=== PATIENT | female | born 1950 | race African-American/Black ===

== ENCOUNTER 2016-04-15 08:04 | Inpatient (IN) ==
[2016-04-15] MEDS ORDERED: NS 1,000 ML IV PRN (08:19)
[2016-04-15 08:57] LABS: MANUAL DIFF NEEDED? NO
[2016-04-15 09:21] LABS: URINE CULTURE NEEDED? NO; URINE MICRO REVIEW NEEDED? NO; URINE SOURCE CLEAN CATCH
[2016-04-15 09:22] LABS: INR 1.05; PROTIME 11.1 Seconds (9.2-11.7); PTT 23.7 Seconds (22.0-36.0)
[2016-04-15 09:24] LABS: BASO% 0.7 % (0.0-0.8); EOS% 2.5 % (0.0-10.0); HEMATOCRIT 32.5 % (37.0-47.0); HEMOGLOBIN 10.4 g/dL (12.0-16.0); LYMPH# 1.84 X1000 (1.2-3.4); LYMPH% 45.1 % (20.5-51.1); MCH 29.9 PG (27-31); MCV 93.4 FL (81-99); MONO# 0.47 X1000 (0.11-0.59); MONO% 11.5 % (1.7-9.3); MPV 12.5 FL (7.4-10.4); NEUT% 40.2 % (42.2-75.2); PLT 92 X1000 (130-400); RBC 3.48 XMIL (4.2-5.4)
[2016-04-15 09:25] LABS: ALBUMIN 4.2 g/dL (3.5-5.0); CALCIUM 9.7 mg/dL (8.8-10.2); POTASSIUM 3.5 mmol/L (3.5-5.1); TOTAL BILIRUBIN 0.37 mg/dL (0.20-1.00)
[2016-04-15 09:31] LABS: BILIRUBIN URINE NEGATIVE (NEGATIVE); BLOOD URINE NEGATIVE (NEGATIVE); COLOR YELLOW; GLUCOSE URINE NEGATIVE (NEGATIVE); LEUKOCYTES URINE NEGATIVE (NEGATIVE); NITRITE URINE NEGATIVE (NEGATIVE); PH URINE 5.5; PROTEIN URINE TRACE mg/dL (NEGATIVE); SP GRAVITY URINE 1.021; TURBIDITY URINE CLEAR (CLEAR); UROBILINOGEN URINE NORMAL (NORMAL)
[2016-04-15 09:32] LABS: UR EPITHELIAL CELLS <10 /HPF (<10); URINE BACTERIA NEGATIVE /HPF; URINE RBC <10 /HPF (<10); URINE WBC <10 /HPF (<10)
[2016-04-15 09:35] LABS: UR AMPHETAMINES QUAL NONE DETECTED (NONE DETECT); UR BARBITUATES QUAL NONE DETECTED (NONE DETECT); UR BENZODIAZEPIN QUAL NONE DETECTED (NONE DETECT); UR CANNABINOIDS QUAL NONE DETECTED (NONE DETECT); UR COCAINE QUAL NONE DETECTED (NONE DETECT); UR METHADONE QUAL NONE DETECTED (NONE DETECT); UR OPIATES QUAL NONE DETECTED (NONE DETECT); UR OXYCODONE QUAL NONE DETECTED (NONE DETECT); UR PCP QUAL NONE DETECTED (NONE DETECT)
--- NOTE | 2016-04-15 09:39 | PROVIDER DOCUMENTATION ---
HPI-Neurological Disorder - General Chief Complaint: Syncope Stated Complaint: TIA SX Time Seen by Provider: 04/15/16 08:05 Source: family, EMS Allergies/Adverse Reactions: Patient Allergies Allergy/AdvReac Type Severity Reaction Status Date / Time No Known Allergies Allergy Verified 02/02/13 17:23 Home Medications: Home Medication List Medication Instructions Recorded Confirmed Last Taken Type Aspirin 81 mg PO DAILY 02/02/13 04/15/16 04/14/16 08:00 History Carvedilol 3.125 mg PO BID 02/02/13 04/15/16 04/14/16 20:00 History Cetirizine [Zyrtec] 10 mg PO DAILY 02/02/13 04/15/16 04/14/16 08:00 History Cholecalciferol (Vit D3) [Vitamin 1,000 unit PO DAILY 02/02/13 04/15/16 08:00 History D3] Clonidine [Catapres] 0.1 mg PO BID 02/02/13 04/15/16 04/14/16 08:00 History Ferrous Gluconate [Fergon] 1 each PO DAILY 02/02/13 04/15/16 04/14/16 08:00 History Levothyroxine [Synthroid] 25 microgm PO DAILY 02/02/13 04/15/16 04/14/16 08:00 History Losartan/Hydrochlorothiazide 1 each PO DAILY 02/02/13 04/15/16 04/14/16 08:00 History [Losartan-Hctz 50-12.5 mg Tab] Metformin [Glucophage] 500 mg PO BID CC 02/02/13 04/15/16 04/14/16 20:00 History Omeprazole [Prilosec] 20 mg PO DAILY@0700 02/02/13 04/15/16 04/14/16 08:00 History SIMVAstatin [Zocor] 20 mg PO DAILY 02/02/13 04/15/16 04/14/16 08:00 History - History of Present Illness-Neuro Nature of Presenting Problem: pt states woke up this morning and did not realized she had messed herself she states she smokes too much this morning went out to get a newspaper and passed out fell into the bushes this was witness by her daughter when the daughter came outside to check on her she had slurring of speech. when the fire department arrived continues slurringof speech when she was put on the stretcher and transported the slurringhad improved by the time she arrived. pt denies any pain at this time admits to having cva in the past with mild left sided residual weakness Onset/Duration: reports: just prior to arrival Timing: reports: improving, gone now Context: reports: impaired speech, facial droop Any recent trauma/injury?: reports: none Character of Deficits: reports: impaired speech, falling (syncope) Cognitive Baseline: alert, oriented x3 Gait Baseline: walks without assistance Associated Symptoms: reports: denies symptoms Review of Systems - Adult - REVIEW OF SYSTEMS - ADULT Constitutional: reports: see HPI Eyes: reports: no symptoms reported Ears, Nose, Mouth & Throat: reports: no symptoms reported Cardiovascular: reports: no symptoms reported Respiratory: reports: no symptoms reported Gastrointestinal: reports: no symptoms reported Genitourinary: reports: no symptoms reported Musculoskeletal: reports: no symptoms reported Integumentary: reports: no symptoms reported Neurological: reports: see HPI Psychiatric: reports: no symptoms reported Endocrine: reports: no symptoms reported Hematologic/Lymphatic: reports: no symptoms reported Allergic/Immunologic: reports: no symptoms reported All Other Systems: Reviewed and Negative Past History - Adult - PAST MEDICAL HISTORY-ADULT Review of Records: reports: Old Records Reviewed, Nursing Assessment Review, Medications Reviewed Major Childhood Illnesses: reports: denies history Cardiovascular: reports: HTN, hyperlipidemia Neurological: reports: CVA, stroke deficits (slight right sided hemiparesis), speech difficulty, TIA - IMMUNIZATION STATUS Childhood Immunizations: See Nurse Assessment Flu Vaccine: See Nurse Assessment - SOCIAL HISTORY Smoking: cigarettes Provider spent 3-5 mins advising pt. on dangers of tobacco.: Discussed manners to quit use, and f/u contacts for add'l counseling. Substance Use: none/never Alcohol Use Frequency: never Living Situation: family Physical Exam- Neurological - Physical Exam-Neuro Initial Vital Signs Reviewed: Yes General Appearance: appears well, alert, no apparent distress Eye Exam: bilateral eye: normal inspection, PERRL, EOMI HENMT: normocephalic/atraumatic, moist mucous membranes, other (mild drooping of the lip on the left pt states this is old) Head Injury: no evidence of injury Neck: non-tender, full range of motion, supple Respiratory: chest non-tender, lungs clear, normal breath sounds, no pleuratic chest pain, no respiratory distress, no accessory muscle use Cardiovascular: normal peripheral pulses, regular rate, rhythm Abdominal Exam: normal bowel sounds, non tender, soft Extremity: normal range of motion, non-tender, normal inspection structural steel fitter Exam: normal hearing, normal speech, PERRL Coordination/Gait: normal finger to nose Motor/Sensory: no motor deficit, no sensory deficit, no pronator drift Neurologic: grossly normal, facial droop (left chronic) Integumentary: normal color, normal turgor, warm/dry Progress - PLAN OF CARE/RESULTS Progress/Plan/Lab Results: Laboratory Results - last 24 hr 04/15/16 04/15/16 04/15/16 08:09 08:09 08:09 WBC 4.08 L RBC 3.48 L Hgb 10.4 L Hct 32.5 L MCV 93.4 MCH 29.9 MCHC 32.0 L RDW Std Deviation 13.3 Plt Count 92 L MPV 12.5 H Immature Gran % (Auto) 0.0 Neut % (Auto) 40.2 L Lymph % (Auto) 45.1 [place] % (Auto) 11.5 H Eos % (Auto) 2.5 Baso % (Auto) 0.7 Immature Gran # (Auto) 0.00 Neut # (Auto) 1.64 Lymph # (Auto) 1.84 [place] # (Auto) 0.47 Eos # (Auto) 0.10 Baso # (Auto) 0.03 PT 11.1 INR 1.05 PTT (Actin FS) 23.7 Sodium 140 Potassium 3.5 Chloride 102 Carbon Dioxide 23 L Anion Gap 15 BUN 27 H Creatinine 1.4 H Estimated GFR/1.73 m2 46 BUN/Creatinine Ratio 19 Glucose 125 H Calculated Osmolality 286 Calcium 9.7 Total Bilirubin 0.37 AST 13 ALT 7 L Alkaline Phosphatase 55 Troponin T Total Protein 7.0 Albumin 4.2 Globulin 2.8 Albumin/Globulin Ratio 1.5 Urine Source Urine Color Urine Turbidity Urine pH Ur Specific [place] Urine Protein Ur Glucose (Stick) Ur Ketones (Stick) Urine Blood Urine Nitrite Urine Bilirubin Urobilinogen Dipstick Urine Leukocytes Urine WBC (Auto) Urine RBC (Auto) U Epithel Cells (Auto) Urine Bacteria (Auto) Urine Opiates Screen Ur Oxycodone Screen Ur Methadone, Qual Ur Barbiturates Screen Ur Phencyclidine Scrn Ur Amphetamines Screen U Benzodiazepines Scrn Urine Cocaine Screen U Cannabinoids Screen 04/15/16 04/15/16 04/15/16 08:09 09:09 09:09 WBC RBC Hgb Hct MCV MCH MCHC RDW Std Deviation Plt Count MPV Immature Gran % (Auto) Neut % (Auto) Lymph % (Auto) [place] % (Auto) Eos % (Auto) Baso % (Auto) Immature Gran # (Auto) Neut # (Auto) Lymph # (Auto) [place] # (Auto) Eos # (Auto) Baso # (Auto) PT INR PTT (Actin FS) Sodium Potassium Chloride Carbon Dioxide Anion Gap BUN Creatinine Estimated GFR/1.73 m2 BUN/Creatinine Ratio Glucose Calculated Osmolality Calcium Total Bilirubin AST ALT Alkaline Phosphatase Troponin T < 0.010 Total Protein Albumin Globulin Albumin/Globulin Ratio Urine Source CLEAN CATCH Urine Color YELLOW Urine Turbidity CLEAR Urine pH 5.5 Ur Specific [place] 1.021 Urine Protein TRACE A Ur Glucose (Stick) NEGATIVE Ur Ketones (Stick) NEGATIVE Urine Blood NEGATIVE Urine Nitrite NEGATIVE Urine Bilirubin NEGATIVE Urobilinogen Dipstick NORMAL Urine Leukocytes NEGATIVE Urine WBC (Auto) <10 Urine RBC (Auto) <10 U Epithel Cells (Auto) <10 Urine Bacteria (Auto) NEGATIVE Urine Opiates Screen NONE DETECTED Ur Oxycodone Screen NONE DETECTED Ur Methadone, Qual NONE DETECTED Ur Barbiturates Screen NONE DETECTED Ur Phencyclidine Scrn NONE DETECTED Ur Amphetamines Screen NONE DETECTED U Benzodiazepines Scrn NONE DETECTED Urine Cocaine Screen NONE DETECTED U Cannabinoids Screen NONE DETECTED ct neg for acute findings will admit for tia cva - CONSULTS/PCP/HOSPITALIST Notification #1 *Consult/PCP/Hospitalist*: hospitalist page dr allison drug abuse resistance education officer typically comes to the bedside Departure - Departure Time of Disposition Order: 09:41 DIAGNOSIS: TIA (transient ischemic attack) Qualifiers: Transient cerebral ischemia type: unspecified Qualified Code(s): G45.9 - Transient cerebral ischemic attack, unspecified Disposition: ADMITTED INPATIENT 09 Certified Medical Emergency: Emergent Condition: Fair
--- NOTE | 2016-04-15 09:39 | ED EKG INTERP ---
EKG Interpretation - EKG Time of EKG reading by physician:: 08:14 EKG Read and Signed by:: Alfonso Acuna EKG Interpretation (*Must complete 3 of following elements*): Normal Rate: 66 Rhythm: normal sinus rhythm [place]: normal
--- NOTE | 2016-04-15 10:11 | Diag Imaging Result Document ---
PROCEDURE NAME: HEAD W/O CONTRAST - 04/15/2016 CT HEAD WITHOUT CONTRAST: COMPARISON: 08/27/2015. FINDINGS: There is a stable right frontal parafalcine meningioma measuring up to 2.4 cm. There is stable mild adjacent effacement of the right lateral ventricle. There is stable focal encephalomalacia primarily involving the left parietal lobe. There also appears to be mild left frontal lobe encephalomalacia. There is extensive white matter microangiopathy that is stable. There is no definite acute infarct given the limited sensitivity of CT versus MRI. There is no evidence of intracranial hemorrhage. Surrounding soft tissues and bony structures are essentially unremarkable. IMPRESSION: 1. Stable right frontal meningioma. 2. Extensive stable chronic changes as described but no evidence of acute intracranial pathology by CT.
[2016-04-15] MEDS ORDERED: ZOFRAN IV PRN (10:57)
[2016-04-15] MEDS ORDERED: TYLENOL PO PRN (10:57)
--- NOTE | 2016-04-15 10:58 | HISTORY AND PHYSICAL ---
HISTORY OF PRESENT ILLNESS: This is a 65-year-old. She stated this morning, she lives at home with her who is the bedridden. Usually, she does not go out and get the paper but today, she did. She was going to go take a shower. Her daughter was there. I think her 2 daughters were there. She went out to get the newspaper. They heard her crying out. She was on the ground. She had a bowel movement and apparently urinated on herself. They did not note any tonic- clonic seizure activity. She seemed to have some confusion. Her speech was labored and could not understand her words. Left arm and left leg weak. Had difficulty standing on her left leg. Brought her to the emergency room. When we saw her, her left leg was better. Still felt a little weak. Left hand was improved as well. Her speech had resolved, according to the family, and she was clear. She states she could swallow. She did complain of a dull headache, just nonspecific on top of her head. Denied fever or chills. PAST MEDICAL HISTORY: 1. Diabetes mellitus type 2. 2. Hypertension. 3. Hyperlipidemia. 4. Iron-deficiency anemia. 5. Meningioma. 6. Prior strokes. 7. Gastroesophageal reflux disease. 8. Hypothyroidism. ALLERGIES: No known drug allergies. FAMILY HISTORY: Noncontributory. SOCIAL HISTORY: She lives at home with her who is bedridden. Very attentive family. Denies alcohol or tobacco by previous report. REVIEW OF SYSTEMS: General: Not reporting any weight change. No fever or chills. HEENT: Headache. Trouble with speech. Neurologic: Left arm and left leg weakness and dysphagia which has resolved. Still some weakness in the left leg and left arm but it is mild. Has good stage director strength. GI/: No complaints. Endocrinologic/Hematologic: History of diabetes, otherwise unremarkable. PHYSICAL EXAMINATION: GENERAL: In the emergency room, well-developed, well nourished, thin, black female. VITAL SIGNS: Pulse was 60, respirations 18, blood pressure 146/84. Notice on the monitor, blood pressure was 180/90 when we saw her. Weight 160 pounds. HEENT: Pupils are equal and round. CVP less than 6 cm. No facial droop. NEUROLOGIC: Cranial nerves 2-12 appear intact. Left arm with good strength, stage director strength. Left foot a little weaker than the right, dorsiflexion and plantarflexion, but she is able to lift that leg off the table. ABDOMEN: Soft, nondistended. CARDIOVASCULAR: Regular rhythm and rate without murmur or S3. ABDOMEN: Soft. SKIN: Warm and dry. DIAGNOSTIC DATA: Monitor shows sinus rhythm. LABORATORY AND X-RAY DATA: Sodium 140, potassium 3.5, chloride 102, bicarb 23, BUN 27, creatinine 1.4, calcium 9.7. AST 13, ALT 7. PT was 11, PTT 23. Urinalysis was nondetected for opiates, oxycodone, methadone, barbiturates, phencyclidine, amphetamines, benzodiazepines, cocaine, and cannabinoids. Urine clear. LIST OF HER HOME MEDICATIONS: She is on aspirin 81 mg a day, Coreg 3.125 mg b.i.d., Zyrtec 10 mg a day, vitamin D3 1000 mg a day, Catapres 0.1 mg b.i.d., 1 daily, Synthroid 25 mcg a day, losartan/hydrochlorothiazide 50/12.5 one a day, metformin 500 mg b.i.d., Prilosec 20 mg a day, Zocor 20 mg daily. ASSESSMENT AND PLAN: 1. Transient ischemic event. Appears to be resolving. Suspect in the right middle carotid distribution. We will add Plavix to her regimen. Aspirin 81 mg a day and Plavix 75 mg a day. She appears to be able to swallow okay. I think we may have had studies before but we probably need to repeat an echocardiogram, although one was done in 2012. We will repeat an echocardiogram and make sure there is no mural thrombus. Put her on a monitor and make sure we are not going into atrial fibrillation, atypical rhythm. We will check carotid studies. She did have a carotid Doppler back in January [address] Zhao. At that time, imaging showed smooth heterogeneous plaque in the right carotid bulb but large plaque in the left carotid bulb, ulceration from the left bilateral antegrade vertebral flow. We will check those again. Probably check an MRI as well tomorrow. 2. Diabetes mellitus type 2. Check pattern sugars and see if we can keep her sugars between 100 and 180. 3. Hypertension. Will tolerate systolic pressures of 140-160. We will watch her afterload. 4. She has a history of iron deficiency anemia. Aware of that. 5. History of meningioma. 6. History of hypothyroidism. We will check T4 and TSH. 7. History of dyslipidemia. Of course, check her lipid profile in the morning. We want to try and keep her LDL, if we can, below 80 just to maximize treating her risk factors for atherosclerosis. Last echocardiogram done on 02/03/2013, excellent left ventricular function at that time, biatrial enlargement. No diastolic dysfunction. Mild degree of tricuspid regurgitation. Mild degree of mitral regurgitation. 8. I think we will put her on full liquids today, make sure she is swallowing okay, and then advance her diet as able. Begin physical and occupational therapy in the morning.
--- NOTE | 2016-04-15 11:10 | Diag Imaging Result Document ---
PROCEDURE NAME: CHEST-PORTABLE - 04/15/2016 AP AND LATERAL RADIOGRAPH OF THE CHEST: COMPARISON: None available. FINDINGS: The lungs are grossly clear. There is no discrete pleural fluid collection or pneumothorax. The cardiomediastinal silhouette and upper airway are grossly unremarkable. IMPRESSION: No evidence of acute chest pathology.
[2016-04-15] MEDS: NS 1,000 ML IV SCH ×2 (11:26→21:16)
[2016-04-15] MEDS: HUMULIN R SUBQ SCH ×3 (11:49→21:21)
[2016-04-15] MEDS: COREG PO SCH (21:20)
[2016-04-15] MEDS: CATAPRES PO SCH (21:20)
[2016-04-15] MEDS: ZOCOR PO SCH (21:21)
[2016-04-16] MEDS: HUMULIN R SUBQ SCH ×4 (06:53→21:12)
[2016-04-16] MEDS: PRILOSEC PO SCH (06:55)
[2016-04-16] MEDS: SYNTHROID PO SCH (06:56)
[2016-04-16] MEDS: NS 1,000 ML IV SCH ×2 (06:58→19:55)
--- NOTE | 2016-04-16 07:06 | EKG Report ---
Test Performed on : 04/15/2016 08:14:56 AM Test Reason : RE ORDER FOR EKG IN MUSE Blood Pressure : / mmHG Vent. Rate : 066 BPM Atrial Rate : 066 BPM P-R Int : 130 ms QRS Dur : 084 ms QT Int : 428 ms P-R-T Axes : 069 045 029 degrees QTc Int : 448 ms Normal sinus rhythm. with sinus arrhythmia. Normal ECG When compared with ECG of 27-AUG-2015 16:42, Nonspecific T wave abnormality now evident in Inferior leads Nonspecific T wave abnormality, worse in Anterior leads Unconfirmed Result
[2016-04-16 07:11] LABS: MANUAL DIFF NEEDED? NO
[2016-04-16 07:22] LABS: BASO% 0.5 % (0.0-0.8); EOS# 0.08 X1000 (0.0-0.7); HEMOGLOBIN 9.9 g/dL (12.0-16.0); LYMPH# 1.72 X1000 (1.2-3.4); MCH 29.6 PG (27-31); MCHC 31.9 g/dL (33-37); MCV 92.8 FL (81-99); MONO% 14.6 % (1.7-9.3); NEUT% 40.9 % (42.2-75.2); PLT 149 X1000 (130-400); RBC 3.34 XMIL (4.2-5.4)
[2016-04-16 07:28] LABS: INR 1.1; PROTIME 11.7 Seconds (9.2-11.7)
[2016-04-16 07:33] LABS: HEMOGLOBIN A1C 5.4 % (4.8-6.0)
[2016-04-16 07:39] LABS: IRON SATURATION 29 %; TIBC 167 ug/dL; TOTAL IRON 49 ug/dL (49-151); UNBOUND IRON 118 ug/dL (112-346)
[2016-04-16 07:59] LABS: FREE T4 1.25 ng/dL (0.93-1.70)
[2016-04-16] MEDS ORDERED: PLAVIX PO SCH (09:00)
[2016-04-16] MEDS: VITAMIN D PO SCH (09:20)
[2016-04-16] MEDS: CATAPRES PO SCH ×2 (09:21→21:12)
[2016-04-16] MEDS: COREG PO SCH ×2 (09:21→21:12)
[2016-04-16] MEDS: ASPIRIN PO SCH (09:21)
[2016-04-16] MEDS: FERGON PO SCH (09:21)
--- NOTE | 2016-04-16 11:15 | Diag Imaging Result Document ---
PROCEDURE NAME: MRI BRAIN W W/O CONTRAST - 04/16/2016 MRI OF THE BRAIN WITHOUT AND WITH CONTRAST: TECHNIQUE: Images are obtained prior to and following Omniscan administration. COMPARISON: CT head of 04/15/2016. FINDINGS: There are moderate chronic microvascular ischemic changes. There is encephalomalacia from old small infarcts at the frontoparietal junction and posterior parietal lobe on the left. The diffusion weighted images show no areas of restricted diffusion (no evidence of acute infarct). There is a 2.4 x 1.6 cm diffusely enhancing meningeal-based lesion along the right-side of the anterior flax (right frontal region). This is compatible with the previously identified meningioma. There is apparent mild mass effect on the nearby anterior margin of the body of the right lateral ventricle, but there is no substantial edema around the meningioma. There are enhancing vascular structures at the right cerebellum with apparent draining vein, suggestive of venous angioma. There is a small amount of mild increased signal on FLAIR and T2 weighted images in the vicinity of the angioma, but there is no evidence of hemorrhage or acute infarct at this location. There is no other hemorrhage, mass effect, or midline shift identified. IMPRESSION: 1. Chronic ischemic changes. No evidence of acute infarct. 2. 2.4 x 1.6 cm parafalcine meningioma in the right frontal region. 3. 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
--- NOTE | 2016-04-16 11:22 | Diag Imaging Result Document ---
PROCEDURE NAME: MRA BRAIN W/O CONTRAST - 04/16/2016 MRA BRAIN WITHOUT CONTRAST: FINDINGS: [id number] MR angiogram of the intracranial circulation with reconstructed 3D rotating MIP images is obtained. There is no evidence of major intracranial arterial occlusion. The right posterior cerebral artery appears to received its supply primarily from the basilar artery. The left posterior cerebral artery appears to receive part of its supply from the left internal carotid artery via the posterior communicating artery. There is no substantial stenosis of major intracranial artery identified. There is no aneurysm identified. IMPRESSION: Essentially unremarkable exam. MTDD
--- NOTE | 2016-04-16 15:30 | ECHO REPORT ---
ORDER DATE: 04/16/2016 ECHOCARDIOGRAPHIC MEASUREMENTS: 1. Interventricular septum 0.9. Left ventricular posterior wall 0.8. Diastolic diameter 4.6. Left atrium 3.5. Aorta 3.1. 2. There is moderate mitral annular calcification. 3. Aortic valve leaflets were sclerosed, trileaflet. 4. Pulmonic valve was normal. Tricuspid valve was normal. Normal left ventricular cavity size. Estimated ejection fraction of 65%. Aortic valve leaflets were calcified trileaflet. 1. Peak velocity across aortic valve less than 2 m/sec. By Doppler studies there is no aortic stenosis or regurgitation. Mitral valve leaflets are normal. 2. There is mild to moderate mitral regurgitation. 3. Mild tricuspid regurgitation. Peak velocity across the tricuspid valve was 2.8 m/sec. Pulmonary artery systolic pressure 40 mmHg. There is trace pulmonary regurgitation. 4. There is no pericardial effusion or obvious intracardiac mass or thrombus.
--- NOTE | 2016-04-16 17:44 | PROGRESS NOTE ---
DATE: 04/16/2016 SUBJECTIVE: She states she feels better. Her left leg is stronger. Left arm is better. Speech is back to normal. She is swallowing fine. OBJECTIVE: Vital signs: Afebrile, temperature 98.0 degrees, pulse 61, respirations 18, blood pressure 170/89. O2 saturation 97%. HEENT: Pupils are equal, round. Neck: CVP less than 6 cm. Lungs: Clear in all lung salvador. Cardiovascular: Regular rhythm and rate without murmur or S3. Abdomen: Soft. Extremities: Strength in her left arm and leg appear to be symmetrical to the right. Left foot dorsiflexion and plantar flexion may be a little weaker than the right. Skin: Warm and dry. LAB: Reviewed her lab from yesterday. Hematocrit stable. White count was 4,100. Platelet count a 149,000. Electrolytes look good. Creatinine 1.4. She had a brain MRI today and a brain MRA, chronic ischemic changes. No evidence of acute infarct. She has had a 2.4 x 1.6 cm parafalcine meningioma in the right frontal region and vascular malformation suggesting venous angioma of the right cerebellum. MRA of the brain essentially unremarkable. ASSESSMENT AND PLAN: 1. She does complain of some neuropathy at night that she has not really tried anything. She may have tried some Lyrica in the past. I will discuss with her whether she wants to go home. May put her on a little bit of amitriptyline at night. We did start Plavix. 2. Blood sugars appear to be well controlled. 3. Blood pressure, appears appropriate.
[2016-04-16] MEDS: ZOCOR PO SCH (21:12)
[2016-04-17] MEDS: SYNTHROID PO SCH (06:32)
[2016-04-17] MEDS: PRILOSEC PO SCH (06:32)
[2016-04-17] MEDS: HUMULIN R SUBQ SCH ×3 (06:44→21:05)
[2016-04-17] MEDS: NS 1,000 ML IV SCH ×4 (09:05→23:08)
[2016-04-17] MEDS: VITAMIN D PO SCH (09:06)
[2016-04-17] MEDS: ASPIRIN PO SCH (09:06)
[2016-04-17] MEDS: CATAPRES PO SCH ×2 (09:06→21:53)
[2016-04-17] MEDS: FERGON PO SCH (09:06)
[2016-04-17] MEDS: COREG PO SCH ×2 (09:06→21:53)
--- NOTE | 2016-04-17 10:55 | Carotid Study ---
DATE: 04/15/2016 PROCEDURE: Carotid duplex imaging. REFERRING PHYSICIAN: Dr. Stallworth INTERPRETING PHYSICIAN: Dr. Dagoberto Zhao TECH: [place] INDICATIONS: The patient has had a CVA with left-sided weakness, slurred speech, confusion, and headache. OBSERVED DATA RIGHT LEFT Brachial Blood Pressure Carotid Pulse Bruits: Carotid/Sub DIAGRAM OF ULTRASOUND IMAGING R L RIGHT INT EXT INT EXT LEFT Marcello (cm/s) Marcello (cm/s) Subclavian 68/0 Subclavian 63/0 CCA Proximal 52/12 CCA Proximal 52/13 CCA Distal 53/12 CCA Distal 44/10 Bulb 50/11 Bulb 67/17 ICA Proximal 44/11 ICA Proximal 160/30 ICA Mid 39/11 ICA Mid 100/14 ICA Distal 62/20 ICA Distal 54/20 ECA 43/4 ECA 56/10 Vertebral 35/13 A Vertebral 74/22 A ICA/CCA Ratio 1.2 ICA/CCA Ratio 2.2 % Stenosis 0%-39% % Stenosis 40%-59% FINDINGS: There is smooth dense plaque in the right common carotid, calcific plaque in the right carotid bulb, calcific plaque in the left common carotid, and very irregular calcific plaque in the left carotid bulb. INTERPRETATION: Plaque disease as noted. Neither side yet produces a stenosis of any consequence. The left carotid bulb plaque though is extremely irregular and likely ulcerated. There is antegrade vertebral flow bilaterally.
--- NOTE | 2016-04-17 13:58 | DISCHARGE SUMMARY ---
ADMISSION DATE: 04/15/2016 DISCHARGE DATE: 04/16/2016 A 65-year-old who stated that the morning of admission she lives at home with her who is bedridden. DICTATION CANCELLED.
--- NOTE | 2016-04-17 15:06 | PROGRESS NOTE ---
DATE: 04/17/2016 SUBJECTIVE: This morning Ms. Perez referred to be doing fine. She was able to go for physical therapy. She did about 200 feet with minimum assistance. OBJECTIVE: Vital Signs: Stable. Blood pressure is 180/85, pulse of 65, respirations 17, temperature 98.3 degrees, patient is saturating 95% on room air. General: Ms. Perez 65-year-old female. She is in bed, no distress. HEENT: Mucosa is pink and moist. Anicteric. Acyanotic. Neck: Supple. Chest: Clear. Cardiovascular: Regular rate and rhythm. Abdomen: Soft, nontender. Bowel sounds are present. Extremities: No pedal edema. DELIVERY DRIVER: Patient is alert, she is oriented. There is really no focal neurological deficit. The left side feels relatively weaker than the right side but this is a sequelae of a previous stroke that she had in the past. LAB: No lab works. ASSESSMENT: 1. Loss of consciousness with bowel and bladder incontinence. The history is somehow suggestive of possible seizures. An MRI of the brain does not show any acute infarct however there is meningioma which patient knows of before and there is also chronic ischemic changes as well as a vascular malformation suggestive of venous angioma in the right cerebellum. I think taking all these findings it is predisposed the patient to have seizures. I will be tempted to start her on at least Keppra to prevent further events but I would defer that to the neurology that I just consulted. 2. Diabetes mellitus stable. 3. Hypertension stable. 4. Hypothyroidism. Will continue with Synthroid. 5. Dyslipidemia. Patient is on simvastatin. GENERAL PLAN: I did order an EEG and a neuro consult. Will be pending the official report from neuro recommendations and the EEG report and then we will make further recommendations going forward. I plan to discharge the patient either later today or tomorrow morning.
--- NOTE | 2016-04-17 15:57 | CONSULTATION ---
DATE OF CONSULTATION: 04/17/2016 HISTORY OF PRESENT ILLNESS: Ms. Perez is 65 years old and she had a falling out episode yesterday. She remembers going outside to get the newspaper, smoking a cigarette, putting out her cigarette, bending over to supervisor picking crew the paper, standing up and then collapsing. She believes she might have felt briefly dizzy or lightheaded but that is not certain. She fell into a hernandez. She believes she was immediately alert and able to call to her daughter for assistance. There was no immediate incontinence. There was no tongue biting. The episode was not witnessed. She felt completely recovered soon after. She feels well today. She had some sort of near syncope a year or so ago. She was sitting on the porch with her , felt ill with nausea and urgency to get to the bathroom but felt uneasy when she attempted to stand. She got some help, got up, and did not lose consciousness. She has history of stroke several years ago causing minimal right-sided weakness without associated aphasia. She has not had more recent stroke. She has never had a diagnosed seizure. Lab work this admission shows anemia. Urine drug screen was all negative. She has past history of hypertension, dyslipidemia, diabetes mellitus, GERD. She says she misses medicine doses sometimes. She has not had any new medicines recently. She has been afebrile this admission. Systolic blood pressures have ranged 120s to 180s. Brain MRI with and without contrast shows usual changes with right frontal parafalcine meningioma which is old and right cerebellar vascular malformation which has not been reported on previous imaging to the best of my knowledge. PHYSICAL EXAM: On exam, Ms. Perez is awake, alert, attentive, cheerful, appropriate, oriented. Speech is not dysarthric. Language function is intact. Memory is good. Head and neck are unremarkable. Visual salvador are full tested grossly by confrontational finger counting. Extraocular movements are full. Facial motility is symmetric. Facial sensation is intact. Gag is intact. Tongue is midline. She can hear. She has some splinting at the shoulders a little more on the left. She has good power in the arms and legs. Tone is slightly increased in the left arm but that may be splinting associated with shoulder discomfort. She did well on finger- nose testing bilaterally. There is no pronator drift. She has good power symmetrically in the legs. I did not test her gait. Sensation is symmetric over the hands. IMPRESSION: 1. Recent collapse, uncertain etiology. This does not sound like a primary neurologic event. She has risk factor for seizure including meningioma. I will order EEG and if that is unremarkable, as expected, I do not think we will need anything further from neurologic standpoint. 2. Old stroke. I do not find definite residual right hemiparesis on exam today. 3. New MRI findings of right cerebellar vascular malformation. I do not think we need to do anything about that finding. We might consider followup imaging later, not urgent. Encouraged her to take her medicines as directed, to be careful when she stands , to sit down quickly if she is lightheaded, to stay well hydrated. Thanks for asking me to see Ms. Perez. [facility]
--- NOTE | 2016-04-17 20:16 | EEG REPORT ---
DATE: 04/17/2016 COMMENT: This is a digitally recorded EEG on a 65-year-old patient with recent collapse, possible syncope, question of seizure. FINDINGS: During waking, medium amplitude 10 Hz, posterior rhythm is present symmetrically and reacts normally to eye opening. Background contains polymorphic and rhythmic theta frequencies over the frontal and central regions symmetrically. Drowsing occurred briefly. Stage 2 sleep was not recorded. Photic stimulation produced some symmetric entrainment. No definite epileptiform discharge was identified. INTERPRETATION: Normal EEG. CORRELATION: The absence of epileptiform discharges on a single EEG does not exclude a clinical diagnosis of seizures, but there is nothing on this record to suggest the presence of a seizure disorder.
[2016-04-17] MEDS: NORVASC PO SCH (21:53)
[2016-04-18] MEDS: SYNTHROID PO SCH (06:43)
[2016-04-18] MEDS: PRILOSEC PO SCH (06:43)
[2016-04-18] MEDS: HUMULIN R SUBQ SCH ×2 (06:46→13:29)
[2016-04-18] MEDS: CATAPRES PO SCH (08:55)
[2016-04-18] MEDS: VITAMIN D PO SCH (08:55)
[2016-04-18] MEDS: ASPIRIN PO SCH (08:55)
[2016-04-18] MEDS: FERGON PO SCH (08:55)
[2016-04-18] MEDS: NORVASC PO SCH (08:55)
[2016-04-18] MEDS: COREG PO SCH (08:56)
[2016-04-18] MEDS ORDERED: CRESTOR PO SCH (09:00)
[2016-04-18] MEDS: NS 1,000 ML IV SCH (09:04)
[2016-04-18 11:33] VITALS: BP 143/84
--- NOTE | 2016-04-18 14:58 | PROGRESS NOTE ---
DATE: 04/18/2016 PATIENT LOCATION: Room 365B. Ms. Perez has not had any more episodes. She is awake, alert, attentive, and appropriate now. I encouraged her to try to remain well hydrated, to stand slowly, to sit down quickly if she is lightheaded, and to try to avoid any further falling. I do not think recent episode was a primary PUPPY WALKER event. She has a past history of stroke and she has risk factors for seizure including meningioma, but, again, I do not think the recent episode was seizure or other primary PUPPY WALKER event. I do not have any new suggestion from a neurologic standpoint. I will be glad to see Ms. Perez again if needed.
--- NOTE | 2016-04-19 11:09 | DISCHARGE SUMMARY ---
ADMISSION DATE: 04/15/2016 DISCHARGE DATE: 04/18/2016 CONSULTATIONS: Andres Rollins III, MD PERTINENT PROCEDURES: 1. EEG was normal. 2. Carotid Doppler's showed plaque disease on in the right common carotid. Calcific plaque in the right carotid bulb. Calcific plaque in the left common carotid and very irregular calcific plaque in the left carotid bulb. 3. Head CT showed a stable right frontal meningioma. Stable chronic changes, but no evidence of acute intracranial pathology. 4. Brain MRA was essentially unremarkable. Brain MRI showed chronic ischemic changes. No evidence of acute infarct, but did show parafalcine meningioma in the right fundal region. Vascular malformation suggesting of a venous angioma in the right cerebellum. Echocardiogram that showed an ejection fraction of 65%. DISCHARGE DIAGNOSES: 1. Loss of consciousness with bowel and bladder incontinence. possible seizures. 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 2. Diabetes mellitus. Stable. 3. Hypertension. Stable. 4. Hypothyroidism. Continue Synthroid. 5. Dyslipidemia. Continue simvastatin. HOSPITAL COURSE: Ms. Perez is a 65-year-old female, who has a past medical history of diabetes mellitus type 2, hypertension, hyperlipidemia, iron- deficiency anemia, meningioma, prior strokes, gastroesophageal reflux disease, hypothyroidism, who stated that on the morning of her admission that she does live at home. She is bed-ridden. She usually does not go out and get the paper but today she did. She was going to take a shower, her daughter was there. When she went out to get the paper they heard her crying out. She was on the ground. She had a bowel movement and apparently urinated on herself. They did not note any tonic- clonic seizure activity. She seemed to have some confusion. Her speech was labored. They could not understand her words. Her left arm and left leg were weak. She had difficulty standing on her left leg. They brought her to the emergency department. Her leg had improved, though she still felt weak. Her left hand had improved as well. Her speech issues had resolved. According to the family, she was speaking clearly, she could swallow. She did complain of a dull headache, just nonspecific on top of her head. The patient was admitted for possible transient ischemic attack event. Patient did undergo an echocardiogram that was normal. Her carotid Doppler's did show plaque on the right and left. Brain MRI and MRA did not show any acute changes from prior. Patient also underwent a normal electroencephalogram. Dr. Rollins was consulted. Dr. Rollins felt that her recent collapse did not sound like a primary neurological event, although she has risk factors for seizure, including her meningioma. In reference to her right cerebrovascular malformation, he felt that they did not need to do anything about that finding and might consider followup in imaging later but not urgent. She was encouraged to take her medicines as directed, to be careful when she stands and to sit quickly if she gets lightheaded and to stay well hydrated. The patient has been discharged home today by Dr. Streeter. OBJECTIVE: Vital Signs: Temperature is 98.2 degrees, heart rate 63 respirations 12, blood pressure is 143/84, O2 is 97% on room air. DISCHARGE DIET: Healthy heart. DISCHARGE MEDICATIONS: 1. Aspirin 81 mg p.o. daily. 2. Carvedilol 3.125 mg p.o. b.i.d. 3. Catapres 0.1 mg p.o. b.i.d. 4. p.o. daily. 5. Glucophage 500 mg p.o. b.i.d. 6. Prilosec 20 mg p.o. daily. 7. Synthroid 25 mcg p.o. daily. 8. Vitamin D3 a 1000 units p.o. daily. 9. Zyrtec 10 mg p.o. daily. 10. Aspirin 81 mg p.o. daily. 11. Crestor 40 mg p.o. daily. 12. Norvasc 5 mg p.o. b.i.d. FOLLOWUP: The patient is being discharged home. She will need to follow up with her primary care physician, Dr. Hellen Landeros, Dr. Anil Warner, as well as Dr. Andres Landeros. She is being followed by [facility]. Patient can return to the emergency department for any worsening symptoms. DISCHARGE TIME: Greater than 30 minutes. Dictated by MARIA FERNANDA Floyd for Emmanuel Streeter MD [facility]
== END 2016-04-18 13:48 | disposition home health service (06) | DRG 101 ==
LOC: EDBD → ED 08:04 → 3N 10:24
PROVIDERS: ATTEND Internal Medicine
DX: R56.9 Unspecified convulsions (principal); E11.40 Type 2 diabetes mellitus with diabetic neuropathy, unspecified; I69.354 Hemiplegia and hemiparesis following cerebral infarction affecting left non-dominant side; I10 Essential (primary) hypertension; D50.9 Iron deficiency anemia, unspecified; F17.210 Nicotine dependence, cigarettes, uncomplicated; E03.9 Hypothyroidism, unspecified; E78.5 Hyperlipidemia, unspecified; K21.9 Gastro-esophageal reflux disease without esophagitis; Z87.442 Personal history of urinary calculi; Z79.82 Long term (current) use of aspirin; Z79.899 Other long term (current) drug therapy; Z79.84 Long term (current) use of oral hypoglycemic drugs; Z91.14 Patient's other noncompliance with medication regimen
CPT/HCPCS: 70450; 70544; 70553; 71010; 80053; 80061; 81001; 82607; 82728; 82746; 82948; 83036; 83540; 83550; 83721; 84439; 84443; 84484; 85025; 85610; 85730; 92523; 93005; 93306; 93880; 95816; A9579; G0480; J7030; 80324; 80345; 80346; 80349; 80353; 80358; 80361; 80365; 83992; 92610-GN; 97116-GP; 97530-GP

== ENCOUNTER 2016-07-19 18:46 | Inpatient (IN) ==
[2016-07-19] MEDS ORDERED: NS 1,000 ML IV PRN (19:03)
--- NOTE | 2016-07-19 19:07 | PROVIDER DOCUMENTATION ---
HPI-Syncope/Dizziness - General Chief Complaint: Near Syncope Stated Complaint: syncope Time Seen by Provider: 07/19/16 19:05 Source: patient, EMS Allergies/Adverse Reactions: Patient Allergies Allergy/AdvReac Type Severity Reaction Status Date / Time No Known Allergies Allergy Verified 07/19/16 19:04 Home Medications: Home Medication List Medication Instructions Recorded Confirmed Last Taken Type Aspirin 81 mg PO DAILY 02/02/13 04/15/16 04/14/16 08:00 History Carvedilol 3.125 mg PO BID 02/02/13 04/15/16 04/14/16 20:00 History Cetirizine [Zyrtec] 10 mg PO DAILY 02/02/13 04/15/16 04/14/16 08:00 History Cholecalciferol (Vit D3) [Vitamin 1,000 unit PO DAILY 02/02/13 04/15/16 08:00 History D3] Clonidine [Catapres] 0.1 mg PO BID 02/02/13 04/15/16 04/14/16 08:00 History Ferrous Gluconate [Fergon] 1 each PO DAILY 02/02/13 04/15/16 04/14/16 08:00 History Levothyroxine [Synthroid] 25 microgm PO DAILY 02/02/13 04/15/16 04/14/16 08:00 History Metformin [Glucophage] 500 mg PO BID CC 02/02/13 04/15/16 04/14/16 20:00 History Omeprazole [Prilosec] 20 mg PO DAILY@0700 02/02/13 04/15/16 04/14/16 08:00 History Amlodipine [Norvasc] 5 mg PO BID #60 tablet 04/18/16 Unknown Rx Aspirin 81 mg PO DAILY #0 chewtab 04/18/16 Unknown Rx ROSUVAstatin [Crestor] 40 mg PO DAILY #60 tablet 04/18/16 Unknown Rx - History of Present Illness-Syncope/Dizzy Nature of Presenting Problem: 66 yof with syncopal episode at grandchild's graduation ceremony. Pt has been having black tarry stools for about a week with gnawing abdominal pain in upper quadrant. Prior Episodes: reports: single episode today Onset/Duration: reports: abrupt Timing: reports: improving Position/Activity at time of episode: reports: sitting Symptoms prior to episode: reports: abdominal pain Context: reports: lost consciousness, felt faint Loss of Consciousness: brief (seconds) Location of injury. (If syncope resulted in an injury.): reports: none Recently Seen Here or By Another Healthcare Provider: No - Dizziness Severity in ED: reports: mild Dizziness Related Current/Associated Symptoms: reports: lightheaded, dizzy Any recent trauma/injury?: reports: none Modifying Factors: improves with: nothing Patient usually:: reports: walks without assistance Review of Systems - Adult - REVIEW OF SYSTEMS - ADULT Constitutional: reports: see HPI Eyes: reports: no symptoms reported Ears, Nose, Mouth & Throat: reports: no symptoms reported Cardiovascular: reports: see HPI, syncope Respiratory: reports: no symptoms reported Gastrointestinal: reports: see HPI, abdominal pain, rectal bleeding Genitourinary: reports: no symptoms reported Musculoskeletal: reports: no symptoms reported Integumentary: reports: no symptoms reported Neurological: reports: no symptoms reported Psychiatric: reports: no symptoms reported Endocrine: reports: no symptoms reported Hematologic/Lymphatic: reports: no symptoms reported Allergic/Immunologic: reports: no symptoms reported All Other Systems: Reviewed and Negative Past History - Adult - PAST MEDICAL HISTORY-ADULT Review of Records: reports: Old Records Reviewed, Nursing Assessment Review Major Childhood Illnesses: reports: denies history Cardiovascular: reports: HTN, hyperlipidemia Neurological: reports: CVA, stroke deficits (slight right sided hemiparesis), speech difficulty, TIA - IMMUNIZATION STATUS Childhood Immunizations: See Nurse Assessment Flu Vaccine: See Nurse Assessment Physical Exam-General - PHYSICAL EXAM-ADULT Initial Vital Signs Reviewed: Yes - CONSTITUTIONAL General Appearance: appears well, alert, no apparent distress - EYES Eyes: PERRL/EOMI, pink conjunctivae - HEAD, EARS, NOSE, MOUTH & THROAT HENMT: normocephalic/atraumatic, moist mucous membranes, normal ENT inspection - NECK Neck: non-tender, full range of motion, supple - RESPIRATORY Respiratory: chest non-tender, lungs clear, normal breath sounds, no pleuratic chest pain, no respiratory distress, no accessory muscle use - CARDIOVASCULAR Cardiovascular: normal peripheral pulses, regular rate, rhythm, no edema, no gallop, no JVD, no murmur - GASTROINTESTINAL (ABDOMEN) Abdominal Exam: normal bowel sounds, non tender, soft, no organomegaly, no pulsatile mass. negative: hepatomegaly, spleenomegaly, McBurney's point tenderness, Will's sign, obturator sign, prominent aortic pulsations, psoas, Rovsing's sign - GENITOURINARY Female Genitalia/Pelvic Exam: deferred Rectal Exam: normal exam (Chaperoned by KEYBOARD INSTRUMENT REPAIRER.), normal rectal tone. negative: black stool, blood streaked stool Hemoccult Exam: heme negative stool - LYMPHATIC Lymphatic: no adenopathy - MUSCULOSKELETAL Back Exam: normal inspection, no CVA tenderness, no vertebral tenderness Extremity: normal range of motion, non-tender, normal gait, normal inspection, no pedal edema, no calf tenderness, normal capillary refill, pelvis stable - SKIN Integumentary: normal color, normal turgor, warm/dry - NEUROLOGIC Neurologic: grossly normal - PSYCHIATRIC Psych/Mental Status: oriented x 3 Progress - PLAN OF CARE/RESULTS Progress/Plan/Lab Results: Vital Signs - 8 hr 07/19/16 19:02 07/19/16 21:08 Temperature 97.7 F Pulse Rate 77 75 Respiratory Rate 18 16 Blood Pressure 113/91 127/81 O2 Sat by Pulse Oximetry 98 99 07/19/16 19:10 Stool Occult Blood (ED) - Final Stool Laboratory Results - last 24 hr 07/19/16 07/19/16 07/19/16 18:55 19:25 19:25 WBC 7.29 RBC 3.52 L Hgb 10.6 L Hct 31.3 L MCV 88.9 MCH 30.1 MCHC 33.9 RDW Std Deviation 13.4 Plt Count 184 MPV 11.0 H Immature Gran % (Auto) 0.4 Neut % (Auto) 67.3 Lymph % (Auto) 22.1 Sterling % (Auto) 9.1 Eos % (Auto) 0.7 Baso % (Auto) 0.4 Immature Gran # (Auto) 0.03 Neut # (Auto) 4.91 Lymph # (Auto) 1.61 Sterling # (Auto) 0.66 H Eos # (Auto) 0.05 Baso # (Auto) 0.03 PT INR PTT (Actin FS) Sodium 137 Potassium 3.9 Chloride 99 Carbon Dioxide 21 L Anion Gap 17 BUN 56 H Creatinine 4.6 H Estimated GFR/1.73 m2 12 BUN/Creatinine Ratio 12 Glucose 151 H POC Glucose 164 H D Calculated Osmolality 292 Calcium 9.3 Total Bilirubin 0.36 AST 13 ALT 8 L Alkaline Phosphatase 57 Total Protein 7.4 Albumin 4.1 Globulin 3.3 Albumin/Globulin Ratio 1.2 Blood Type Antibody Screen 07/19/16 07/19/16 19:25 19:25 WBC RBC Hgb Hct MCV MCH MCHC RDW Std Deviation Plt Count MPV Immature Gran % (Auto) Neut % (Auto) Lymph % (Auto) Sterling % (Auto) Eos % (Auto) Baso % (Auto) Immature Gran # (Auto) Neut # (Auto) Lymph # (Auto) Sterling # (Auto) Eos # (Auto) Baso # (Auto) PT 12.5 H INR 1.18 PTT (Actin FS) 23.6 Sodium Potassium Chloride Carbon Dioxide Anion Gap BUN Creatinine Estimated GFR/1.73 m2 BUN/Creatinine Ratio Glucose POC Glucose Calculated Osmolality Calcium Total Bilirubin AST ALT Alkaline Phosphatase Total Protein Albumin Globulin Albumin/Globulin Ratio Blood Type A POSITIVE Antibody Screen NEGATIVE Orders Category Date Time Status FSBS [Finger Stick Blood Sugar (ED)] DIRECTED Care 07/19/16 19:04 Active Misc. NRSG Communication Order DIRECTED Care 07/19/16 20:30 Active Saline Loc DIRECTED Care 07/19/16 19:[address] ABD/PELVIS ORAL CONTR ONLY [CT] Stat Exams 07/19/16 19:06 Completed CBC WITH ELECTRONIC DIFF [HEME] Stat Lab 07/19/16 19:25 Completed COMPREHENSIVE METABOLIC PANEL [CHEM] Stat Lab 07/19/16 19:25 Completed OCCULT BLOOD SCREENING [STOOL] Stat Lab 07/19/16 19:10 Completed PROTIME WITH INR [COAG] Stat Lab 07/19/16 19:25 Completed PTT [COAG] Stat Lab 07/19/16 19:25 Completed TYPE & SCREEN [BBK] Stat Lab 07/19/16 19:25 Completed 0.9% Sodium Chloride Inj [Ns] 1,000 ml Med 07/19/16 19:03 Active IV 125 mls/hr 0.9% Sodium Chloride Inj [Ns] 1,000 ml Med 07/19/16 20:23 Discontinued IV 999 mls/hr EKG [EKG] Stat Ther 07/19/16 19:04 Ordered Result Diagrams: 07/19/16 19:25 07/19/16 19:25 - CT/MRI 1 CT Study: Abdomen Impression: See EMR Report (IMPRESSION: Mild enlargement of right adrenal gland , likely related to adrenal adenoma. Extensive atherosclerotic calcifications, including along the superior mesenteric artery. Questionable wall thickening at rectum versus artifact of limited distention of the lumen. Mild proctitis cannot be excluded. No abscess. No free air. No bowel obstruction. Lumbar spine degenerative changes, including mild narrowing the spinal canal at L4-5. Electronically signed by Brendno Devries 07/19/2016 9:52 PM) - CONSULTS/PCP/HOSPITALIST Notification #1 *Consult/PCP/Hospitalist*: Tera Time Discussed: 22:06 Consult Disposition: Will see in ED, Admit Departure - Departure Time of Disposition Decision: 22:03 DIAGNOSIS: Dehydration Acute renal failure Qualifiers: Acute renal failure type: unspecified Qualified Code(s): N17.9 - Acute kidney failure, unspecified Disposition: ADMITTED INPATIENT 09 Certified Medical Emergency: Emergent Condition: Stable - Critical Care Note This patient required my direct & personal management of CC.: No Attestation - Physician/ MALISSA Attestation Patient care was provided by Advanced Practice Provider:: Yes Advanced Practice Provider:: Doroteo Morales Advanced Practice Provider documentation review:: The Mid-level provider documentation, treatment plan and medical decision making was reviewed by the physician who agrees with all treatment and medical decision making by the MLP.
[2016-07-19 19:35] LABS: MANUAL DIFF NEEDED? NO
[2016-07-19 19:41] LABS: BASO% 0.4 % (0.0-0.8); EOS# 0.05 X1000 (0.0-0.7); EOS% 0.7 % (0.0-10.0); HEMATOCRIT 31.3 % (37.0-47.0); HEMOGLOBIN 10.6 g/dL (12.0-16.0); IMM GRAN# 0.03 X1000 (0.0-0.04); IMM GRAN% 0.4 % (0.0-0.5); LYMPH# 1.61 X1000 (1.2-3.4); LYMPH% 22.1 % (20.5-51.1); MCH 30.1 PG (27-31); MCHC 33.9 g/dL (33-37); MCV 88.9 FL (81-99); MONO# 0.66 X1000 (0.11-0.59); MONO% 9.1 % (1.7-9.3); NEUT% 67.3 % (42.2-75.2); PLT 184 X1000 (130-400); RBC 3.52 XMIL (4.2-5.4)
[2016-07-19 19:48] LABS: INR 1.18; PROTIME 12.5 Seconds (9.2-11.7); PTT 23.6 Seconds (22.0-36.0)
[2016-07-19 20:08] LABS: ALBUMIN 4.1 g/dL (3.5-5.0); CALCIUM 9.3 mg/dL (8.8-10.2); POTASSIUM 3.9 mmol/L (3.5-5.1); TOTAL BILIRUBIN 0.36 mg/dL (0.20-1.00); TOTAL PROTEIN 7.4 g/dL (6.3-8.3)
[2016-07-19] MEDS ORDERED: NS 1,000 ML IV ONE ×2 (20:23→22:29)
--- NOTE | 2016-07-19 21:54 | Diag Imaging Result Doc PS360 ---
EXAM: CT ABD/PELVIS ORAL CONTR ONLY - 07/19/2016 HISTORY: Abd pain and bloody stools TECHNIQUE: With oral contrast only per request the referring provider. Dose reduction protocol. COMPARISON: None FINDINGS: The visualized lung bases appear clear except for mild dependent atelectasis on the right. There are no substantial abnormalities of the liver, spleen, or pancreas identified. There are no calcified gallstones or pericholecystic inflammation identified. There is low-density enlargement of the right adrenal gland, which measures 2.1 x 1.5 cm. This likely relates to adrenal adenoma. There is no renal stone or hydronephrosis identified. There are no substantial enlarged lymph nodes identified. There are extensive atherosclerotic calcifications along the abdominal aorta, iliac arteries, proximal bilateral renal arteries, and superior mesenteric artery. There is ectasia of the right common iliac artery up to 1.4 cm. There is no abdominal aortic aneurysm seen. There are some lumbar spine degenerative changes, most conspicuous at the left L4-5 facet. There is mild degenerative narrowing the spinal canal at L4-5. There is no evidence of bowel obstruction. The appendix is not discretely visualized but there is no pericecal inflammation identified. There is possible thickening of the rectal chirinos versus artifact related to limited distention of the rectal lumen. There is no other substantial bowel wall thickening identified. There is no free air or abscess identified. There is a tiny fat-containing umbilical hernia noted. Images of pelvis otherwise show postsurgical changes of partial hysterectomy. There is no abnormal pelvic mass or fluid collection identified. There is possibly generalized mild thickening of the urinary bladder chirinos. IMPRESSION: Mild enlargement of right adrenal gland, likely related to adrenal adenoma. Extensive atherosclerotic calcifications, including along the superior mesenteric artery. Questionable wall thickening at rectum versus artifact of limited distention of the lumen. Mild proctitis cannot be excluded. No abscess. No free air. No bowel obstruction. Lumbar spine degenerative changes, including mild narrowing the spinal canal at L4-5. Electronically signed by Brendon Devries 07/19/2016 9:52 PM
[2016-07-20] MEDS ORDERED: ZOFRAN IV PRN (00:31)
[2016-07-20] MEDS: SODIUM CHLORIDE 0.9% INJ SCH (01:06)
[2016-07-20] MEDS: PROTONIX IV SCH (01:06)
[2016-07-20] MEDS: NS 1,000 ML IV SCH ×4 (01:08→22:05)
--- NOTE | 2016-07-20 05:19 | EKG Report ---
Test Performed on : 07/19/2016 6:57:48 PM Test Reason : syncope Blood Pressure : / mmHG Vent. Rate : 078 BPM Atrial Rate : 078 BPM P-R Int : 136 ms QRS Dur : 084 ms QT Int : 394 ms P-R-T Axes : 077 062 050 degrees QTc Int : 449 ms Sinus rhythm. with premature atrial complexes. Right atrial enlargement Borderline ECG When compared with ECG of 15-APR-2016 08:14, premature atrial complexes. are now present Unconfirmed Result
--- NOTE | 2016-07-20 06:39 | HISTORY AND PHYSICAL ---
PRIMARY CARE PROVIDER: Dr. Hellen Landeros. CHIEF COMPLAINT: Near syncopal episode. HISTORY OF PRESENT ILLNESS: This is a 66-year-old female with a history of diabetes mellitus type 2, hypertension, hyperlipidemia, Iron deficiency anemia and TIAs who presents to the emergency room after having a syncopal or near syncopal episode at her grandchild's graduation ceremony k[place]. It was apparently getting very hot in the auditorium when she had her fainting spell. She did not hit the floor. A family member caught her and she did not lose consciousness for very long, if at all. The patient on arrival stated that she has been having nausea and vomiting for roughly a month and has been unable to eat anything at all for roughly a week with gnawing abdominal pain in the epigastric area of her stomach. Daughter is at bedside. 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 They think that there is a chance that this is stress-related, and some days the patient admits that she does not even attempt to eat. She further stated that she really has not tried any nausea medicine prior to eating. Laboratory data was obtained which showed the patient having an elevated BUN and creatinine at 56 and 4.6, respectively. The patient has a baseline creatinine around 1.4. She was given 2 L boluses in the emergency room as she was noted to be severely volume depleted on arrival. She will be admitted to the medical floor for further evaluation and treatment. PAST MEDICAL HISTORY: 1. Diabetes mellitus type 2. 2. Hypertension. 3. Hyperlipidemia. 4. Iron deficiency anemia. 5. Meningioma. 6. Prior CVAs. 7. TIAs. 8. GERD. 9. Hypothyroidism. PAST SURGICAL HISTORY: 1. Hysterectomy in 1989. 2. Carpal tunnel release. FAMILY HISTORY: Mother had a CVA and in her 70s. Father had brain cancer. SOCIAL HISTORY: She lives with her bed-bound , was his primary caregiver. She was a 1+ pack per day smoker for many years. Has recently cut down related to her illness. Denies alcohol or illicit drug use or abuse. Daughter is at bedside. Appears to be very attentive. ALLERGIES: No known drug allergies. HOME MEDICATIONS: Home medication list is unavailable. Nursing will reconcile medications in a.m. The patient did not have a list. REVIEW OF SYSTEMS: A 14 point review of systems conducted with the patient. She was positive for weight loss of an unknown amount over the last month. Denied fever, chills, headache. She did have a syncopal episode today. Denied any weakness or dysphagia tonight, but stated that she has had weakness over the past couple of months. She denied any dysuria, denied polydipsia, polyphagia, and polyuria. She complained of a gnawing abdominal pain and nausea and vomiting. No complaint of hematemesis. She did complain of dark stools. However she is on iron supplementation. No hematochezia. PHYSICAL EXAMINATION: VITAL SIGNS: Temperature 98.1 degrees, pulse 84, respirations 16, blood pressure 147/73, oxygen saturation 100% on room air. GENERAL: Pleasant 66-year-old female with family at the bedside. Alert and oriented x3. Answers all questions appropriately. HEENT: Head is atraumatic, normocephalic. Pupils equal, round, reactive to light. Extraocular eye movement intact. Sclerae is anicteric. Conjunctivae is mildly pale. Oral mucosa is dry. NECK: Supple. Left-sided EJ noted. Trachea is midline. CARDIAC: S1-S2 appreciated. No murmurs, gallops, rubs. Regular rhythm. LUNGS: Mild expiratory wheeze noted throughout the lung salvador. Clears with cough. Symmetrical rise and fall with respirations. No rhonchi, no rales. ABDOMEN: Soft, nondistended, mildly tender to the epigastric area. No pulsatile mass. No organomegaly. EXTREMITIES: No clubbing, cyanosis, or edema. 2+ pedal pulses. SKIN: Warm dry and intact. No acute lesions or rash. NEUROLOGICAL: Alert and oriented x3. No focal motor deficits. Cranial nerves 2-12 appear to be grossly intact. LABORATORY DATA: WBC 7.29, hemoglobin 10.6, hematocrit 31.3. Platelet count 184. Coags within normal limits. Sodium 137, potassium 3.9, chloride 99, carbon dioxide 21, BUN 56, creatinine 4.6, glucose 151. ASSESSMENT AND PLAN: 1. Acute on chronic kidney disease. The patient has a baseline creatinine around 1.3. It is now 4.6, this is likely related to her severe volume depletion from having nausea and vomiting and not having proper intake. We will give fluid resuscitation. We will also consult Dr. Faye to evaluate as well. 2. Nausea and vomiting with a gnawing abdominal pain. The patient states that she has been unable to eat, has lost a significant amount of weight; however, she was unable to tell me how much. This has been going on for the last month. Will consult Dr. Mckinney with GI to evaluate. Start patient on Protonix 40 mg IV q.24 hours. We will also give Zofran 4 mg IV q.4 hours p.r.n. as needed. We will hold the patient NPO at this time. 3. Hypertension. The patient appears to be on Coreg. She did not have a list of her home medications. We will start 3.125 mg p.o. b.i.d. of Coreg. She was normotensive on arrival, likely related to her fluid volume depletion. We will continue other medications as appropriate. 4. Iron deficiency anemia. Patient is around her baseline. Hemoglobin and hematocrit. Continue her ferrous gluconate which I believe is 240 mg p.o. daily. This can be changed as her medication list is updated. 5. Hypothyroidism the patient does take 25 mcg of Synthroid. This was 1 medication that she was aware of that she took. We will continue this and check a TSH level. Repeat laboratory data in a.m. Further recommendations per patient clinical course. Dictated by MARIA FERNANDA Burgos for Ren Haley MD cc: MARIA FERNANDA Burgos MD Lindsay Smith
[2016-07-20 07:12] LABS: MANUAL DIFF NEEDED? NO
[2016-07-20 07:16] LABS: BASO% 0.3 % (0.0-0.8); EOS# 0.08 X1000 (0.0-0.7); EOS% 1.1 % (0.0-10.0); HEMATOCRIT 27.8 % (37.0-47.0); HEMOGLOBIN 9.2 g/dL (12.0-16.0); IMM GRAN# 0.02 X1000 (0.0-0.04); IMM GRAN% 0.3 % (0.0-0.5); LYMPH# 2.72 X1000 (1.2-3.4); LYMPH% 35.9 % (20.5-51.1); MCH 29.5 PG (27-31); MCHC 33.1 g/dL (33-37); MCV 89.1 FL (81-99); MONO% 9.2 % (1.7-9.3); MPV 11.5 FL (7.4-10.4); NEUT% 53.2 % (42.2-75.2); PLT 156 X1000 (130-400); RBC 3.12 XMIL (4.2-5.4)
[2016-07-20 07:36] LABS: CALCIUM 8.2 mg/dL (8.8-10.2); POTASSIUM 3.5 mmol/L (3.5-5.1)
[2016-07-20 08:38] LABS: URINE MICRO REVIEW NEEDED? NO; URINE SOURCE CLEAN CATCH
[2016-07-20 08:42] LABS: BILIRUBIN URINE NEGATIVE (NEGATIVE); BLOOD URINE TRACE (NEGATIVE); COLOR STRAW; GLUCOSE URINE NEGATIVE (NEGATIVE); LEUKOCYTES URINE NEGATIVE (NEGATIVE); NITRITE URINE NEGATIVE (NEGATIVE); PROTEIN URINE TRACE mg/dL (NEGATIVE); SP GRAVITY URINE 1.007; TURBIDITY URINE CLEAR (CLEAR); UR EPITHELIAL CELLS <10 /HPF (<10); URINE BACTERIA NEGATIVE /HPF; URINE RBC <10 /HPF (<10); URINE WBC <10 /HPF (<10); UROBILINOGEN URINE NORMAL (NORMAL)
[2016-07-20 08:52] LABS: UR PROT RANDOM 10.9 mg/dL
[2016-07-20 08:53] LABS: UR CREAT RANDOM 53.2 mg/dL (11-20)
--- NOTE | 2016-07-20 08:53 | Diag Imaging Result Doc PS360 ---
EXAM: US RENAL 2 (RETROPER) COMPLETE INDICATION: decreased renal function COMPARISON: None. FINDINGS: The renal cortical echotexture appears slightly increased bilaterally, which is a nonspecific indicator of medical renal disease. There is no definite hydronephrosis or solid renal mass identified. The right kidney measures 10.9 cm and the left kidney measures 9.0 cm in the greatest longitudinal axes. Both the right and left renal cortices measure up to 0.9 cm in thickness. The urinary bladder is grossly unremarkable. IMPRESSION: Slightly increased renal cortical echotexture, which is a nonspecific indicator of medical renal disease. Electronically signed by Orlando Goetz 07/20/2016 8:51 AM
--- NOTE | 2016-07-20 10:05 | PROGRESS NOTE ---
DATE: 07/20/2016 REASON FOR ADMISSION: Syncopal episode, acute kidney injury, nausea, vomiting. REASON FOR CONSULTATION: Qtvke-jz-axadcif kidney disease. CONSULTING PHYSICIAN: Dr. Ren Haley. HISTORY OF PRESENT ILLNESS: This is a 66-year-old female with a past medical history Of hypertension, diabetes type 2, chronic kidney disease stage 3 with a baseline creatinine of 1.4. We have never seen her as a patient in the outpatient setting. The patient presented to the emergency room after having a near-syncopal episode at grandchild's graduation ceremony. The patient was brought to the emergency room where, by history, it was found that she has been having nausea and vomiting with significant abdominal pain for at least a month. 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 The patient states that she knows that she was not taking care of herself, that she had not been eating and that she had lost a significant amount of weight in the last month. In the emergency room, she had BUN of 56, creatinine 4.6. She was given 2 L of IV fluid in the ER and admitted to the hospital for further workup and treatment. This morning, she states that she is still nauseated but actually thinks she might eat something. She did report to me that she had been having some dark tarry stools now for several weeks. She has never noticed any bright red blood or even maroon-colored stools during this time. She has had no chest pain. She has had occasional shortness of breath. She has had no headache or other dizziness other than the issue prior to coming to the emergency room. Her urine output has been normal, otherwise, just dark. PAST MEDICAL HISTORY: Diabetes type 2, hypertension, hyperlipidemia, iron-deficiency anemia, prior CVAs and TIAs, GERD, hypothyroidism, chronic kidney disease stage 3 with a baseline creatinine of 1.4. PAST SURGICAL HISTORY: Hysterectomy and carpal tunnel release. ALLERGIES: No known drug allergies. HOME MEDICATIONS: Her home medications include 1. Zyrtec. 2. Vitamin D 3. 3. Glucophage. 4. Prilosec. 5. Norvasc. 6. Aspirin. 7. Crestor. 8. Coreg. 9. Catapres. 10. Ferrous gluconate. 11. Synthroid. FAMILY HISTORY: Mother with CVA. Father had brain cancer. SOCIAL HISTORY: Previous smoker; currently quit. No ETOH or illicit drug use. Again, up until about last week, she was the primary caregiver of her who is bedridden and requires total care. She does have children that can assist her. REVIEW OF SYSTEMS: Pertinent positives noted above in the HPI. PHYSICAL EXAMINATION: Vital Signs: Temperature 98.1 degrees, pulse 84, respiratory rate 19, blood pressure 155/79. Intake 875 mL. Output not measured. General: This is a middle-aged, -[place] female, sitting up in bed. She is awake, alert, pleasant and cooperative and able to give me an appropriate history and assist with exam. HEENT: Normocephalic and atraumatic. Conjunctivae are pink. HORACE. Oral mucosa is moist. Neck is supple. She has a left EJ IV. There is no JVD. Cardiovascular reveals a regular rate and rhythm. There is no murmur or gallop. Pulmonary: She has equal excursion. She is clear bilaterally today. There is no increased work of breathing. Abdomen is soft, positive bowel sounds. : Not inspected. She is voiding. Extremities: No clubbing or cyanosis. She is moving all extremities and is ambulatory with assistance. Integumentary: Skin is warm and dry without rash or lesions. Neurologic: Grossly nonfocal. LABORATORY DATA: WBC of 7.5, hemoglobin 9.2, hematocrit 27.8, and platelet count of 156,000. Sodium 140, potassium 3.5, chloride 103, CO2 of 19. BUN 51, creatinine 4.1. ASSESSMENT AND PLAN: 1. Rbcwo-tu-kideqyb kidney disease. The patient did receive IV fluids last night and, apparently by report, she had significant decrease in intake. She is not on an Gal or ARB noted at home. We will check a FENa and FEUN along with imaging to further stratify her current acute kidney injury. We will recheck labs in the morning. Further orders to follow once we have those results. 2. Nausea, vomiting, abdominal pain with dark stools. Dr. Mckinney has been consulted. The patient is n.p.o. until she sees him. 3. Hypertension; being treated with home medications; currently acceptable. 4. Iron-deficiency anemia. She is on outpatient p.o. iron. We will go ahead and order iron studies on her. 5. Electrolytes, acid-base balance. These are acceptable. Dictated by MARIA FERNANDA Becker for Santiago Faye MD cc: Santiago Faye MD
[2016-07-20] MEDS: CATAPRES PO SCH ×2 (12:48→20:55)
[2016-07-20] MEDS: FERGON PO SCH (12:48)
[2016-07-20] MEDS: COREG PO SCH ×2 (12:49→20:55)
[2016-07-20] MEDS: SYNTHROID PO SCH (12:49)
--- NOTE | 2016-07-20 12:57 | PROGRESS NOTE ---
DATE: 07/20/2016 SUBJECTIVE: 1. Patient reports feeling fine, definitely not nauseated. 2. No fever or chills reported. OBJECTIVE: Vital Signs: Temperature 98.1 degrees, heart rate 79, respiratory rate 20, blood pressure 135/70. O2 saturation 99% on room air. General: This is a 66-year-old -[place]ron[place] female lying in bed, in no acute distress. HEENT: Head is normocephalic, atraumatic. Anicteric sclerae and pale conjunctivae. Mucous membranes moist. Neck: Supple. No JVD noted. No carotid bruits. No lymphadenopathy. No thyromegaly. Cardiovascular: S1, S2 heard. No murmurs, gallops, or rubs. Regular rate and rhythm. Respiratory: Clear bilaterally to auscultation. No work of breathing or using accessory muscles. Abdomen: Soft, nontender to palpation. Bowel sounds present. No organomegaly. Extremities: No clubbing, cyanosis, or edema. Peripheral pulses present in both legs. Neurological: Patient is alert and oriented x3. Moves 4 extremities. Cranial nerves 2-12 grossly normal. LABORATORY DATA: White cell count 7.58 with hemoglobin 9.2. BMP shows creatinine 4.1 and BUN 51. ASSESSMENT/PLAN: 1. Acute on chronic kidney disease. Patient has been on IV fluids with mild improvement in creatinine from 4.6 to 4.1. Baseline is 1.3. Dr. Faye is on board. We will follow recommendations. 2. Nausea and vomiting. That condition is much better. The patient requests to eat. We will provide some food. 3. Hypertension. The patient was on Coreg. She was normotensive on arrival, but now the blood pressure is 130 to 140s and this medication will be restarted. 4. Iron deficiency anemia. Anemia profile has been ordered. We will follow recommendations. 5. Hypothyroidism. Patient on Synthroid 25 mcg. We will continue with the same management. TSH is within normal limits. cc: Miguel Browning MD
[2016-07-21] MEDS: NS 1,000 ML IV SCH ×4 (01:27→16:35)
[2016-07-21] MEDS: SODIUM CHLORIDE 0.9% INJ SCH (01:38)
[2016-07-21] MEDS: PROTONIX IV SCH ×2 (01:38→23:46)
[2016-07-21 06:26] LABS: ALBUMIN 3.2 g/dL (3.5-5.0); CALCIUM 8.1 mg/dL (8.8-10.2); POTASSIUM 3.5 mmol/L (3.5-5.1)
[2016-07-21] MEDS: SYNTHROID PO SCH (06:35)
[2016-07-21 06:49] LABS: FERRITIN 688 ng/mL (13-150)
[2016-07-21 06:54] LABS: HEMATOCRIT 26.8 % (37.0-47.0); HEMOGLOBIN 8.9 g/dL (12.0-16.0); MCH 29.9 PG (27-31); MCHC 33.2 g/dL (33-37); MCV 89.9 FL (81-99); RBC 2.98 XMIL (4.2-5.4)
[2016-07-21] MEDS: FERGON PO SCH (08:17)
[2016-07-21] MEDS: CATAPRES PO SCH ×2 (08:17→20:34)
[2016-07-21] MEDS: COREG PO SCH ×2 (08:17→20:34)
--- NOTE | 2016-07-21 10:39 | PROGRESS NOTE ---
DATE: 07/21/2016 SUBJECTIVE: Patient is sitting up in bed eating breakfast. She has had no nausea or vomiting today. She states that she feels much better. OBJECTIVE: Vital Signs: Temperature 98.4 degrees, pulse 69, respiratory rate 12, blood pressure 116/68, intake 2.7 L. Output not measured. PHYSICAL EXAMINATION: General: This is a middle-aged female, resting in bed. She is awake and alert, in no acute distress. HEENT: Head is normocephalic, atraumatic. Oral mucosa moist. Conjunctivae pink. Neck: Supple. Trachea midline. No JVD. Cardiovascular: Regular rate and rhythm. No murmur or gallop. Pulmonary: Equal excursion. Clear bilaterally. Abdomen: Soft, positive bowel sounds. Nontender. : Not inspected. She is voiding. Extremities: No clubbing, cyanosis or edema. She is ambulatory without assistance. Integumentary: Skin is warm and dry without rash or lesion. LAB DATA: WBC of 5.0, hemoglobin 8.9. Sodium 142, potassium 3.5, CO2 of 20, BUN 37, creatinine 3.1. She had iron of 76, saturation of 50%, and ferritin of 688. ASSESSMENT AND PLAN: 1. Acute on chronic kidney disease. She has had nice improvement of her renal function overnight. Her baseline creatinine is 1.4. She has IV fluids infusing. She is eating and drinking well. Urine output, by report from the patient, appears to be adequate although it was not measured. We will continue current therapy, reduce her IV fluids, as she is drinking well, and to recheck labs in the morning. If her numbers have continued to improve, and her other issues with nausea and vomiting have been resolved, we would be in agreement for her to be discharged at the discretion of the primary. We would follow up with her as an outpatient in 2 weeks. 2. Iron-deficiency anemia. Her iron studies are acceptable. Currently she does have some question of dark tarry stools, being followed by GI. Once that has been resolved, we would recheck these studies and add additional therapy in the form of erythropoietin if appropriate. Dictated by MARIA FERNANDA Becker for Santiago Faye MD cc: Santiago Faye MD
--- NOTE | 2016-07-21 13:15 | PROGRESS NOTE ---
DATE: 07/21/2016 SUBJECTIVE: Patient reports feeling fine. Less nauseated. No fever or chills reported. OBJECTIVE: Vital Signs: Temperature 98.3 degrees, heart rate 72, respiratory 14, blood pressure 112/62, O2 saturation 100% on room air. General examination: This is a 66-year-old female lying in bed, in no acute distress. HEENT: Head is normocephalic, atraumatic. Anicteric sclerae and pale conjunctivae. Mucous membranes moist. Neck: Supple. No JVD noted. No carotid bruits. Cardiovascular: S1, S2 heard. No murmurs, gallops, or rubs. Regular rate and rhythm. Respiratory: Clear bilaterally to auscultation. No work of breathing or using accessory muscles. Abdomen: Soft, nontender to palpation. Bowel sounds present. No organomegaly. Extremities: No clubbing, cyanosis, or edema. Peripheral pulses present in both legs. Neurological: Alert and oriented x3. Moves 4 extremities. Cranial nerves 2-12 grossly normal. LABORATORY DATA: Creatinine 3.1. ASSESSMENT AND PLAN: 1. Acute on chronic kidney disease. Patient's creatinine has been recovering nicely and today is 3.1. We will continue with IV fluids. Dr. Faye is following this patient. They are okay to let this patient go. 2. Nausea and vomiting. Resolved. 3. Hypertension. Patient has been restarted on Coreg and heart rate is okay as well as the blood pressure. We will continue with the same doses. In this case, it is 3.125. 4. Iron deficiency anemia. The results of the panel showed normal iron with normal TIBC, high ferritin that could be secondary to chronic disease. We will continue checking CBC daily. 5. Hypothyroidism. Patient on home doses of Synthroid. In this case, 25 mcg. cc: Miguel Browning MD
[2016-07-22] MEDS: SYNTHROID PO SCH (06:03)
[2016-07-22] MEDS: NS 1,000 ML IV SCH (06:03)
[2016-07-22 06:42] LABS: ALBUMIN 3.2 g/dL (3.5-5.0); CALCIUM 8.2 mg/dL (8.8-10.2); POTASSIUM 3.3 mmol/L (3.5-5.1)
[2016-07-22 07:09] LABS: HEMATOCRIT 28.3 % (37.0-47.0); HEMOGLOBIN 9.2 g/dL (12.0-16.0); MCHC 32.5 g/dL (33-37); MCV 92.2 FL (81-99); MPV 12.4 FL (7.4-10.4); RBC 3.07 XMIL (4.2-5.4)
[2016-07-22 07:59] VITALS: BP 155/70
[2016-07-22] MEDS: CATAPRES PO SCH (10:28)
[2016-07-22] MEDS: FERGON PO SCH (10:28)
[2016-07-22] MEDS: COREG PO SCH (10:28)
--- NOTE | 2016-07-22 13:43 | PROGRESS NOTE ---
DATE: 07/22/2016 SUBJECTIVE: Patient is sitting up in bed. She believes she will be discharged home this afternoon. She feels much better. OBJECTIVE: Vital Signs: Temperature 98 degrees, pulse 67, respiratory rate 20, blood pressure 150/70. Intake 3.9 L, output 1.6 L. General: Middle-aged female resting in bed. No acute distress. HEENT: Normocephalic, atraumatic. Oral mucosa moist. Conjunctivae pink. HORACE. Neck: Supple. Trachea midline. Cardiovascular: Regular rate and rhythm. No murmur gallop appreciated. Pulmonary: She is clear bilaterally with equal excursion. Abdomen: Soft, positive bowel sounds. Genitourinary: Not inspected. Voiding. Extremities: No clubbing, cyanosis or edema. Integumentary: Skin is warm and dry. LAB DATA: WBC of 5.2, hemoglobin 9.2. Sodium 146, potassium 3.3, CO2 21, BUN is 2.1, phosphorus 2.5. ASSESSMENT AND PLAN: 1. Acute on chronic kidney disease. She has had continued progressive improvement with her renal function over the last 24 hours. She is closing in on her historical baseline. We understand that she is to be discharged home later today. We are in agreement with this plan. We will need to see her in follow up in 2 weeks as an outpatient. 2. Iron-deficiency anemia. I will follow in the office. Dictated by MARIA FERNANDA Becker for Santiago Faye MD cc: Santiago Faye MD
--- NOTE | 2016-07-22 14:57 | DISCHARGE SUMMARY ---
ADMISSION DATE: 07/19/2016 DISCHARGE DATE: 07/22/2016 DISCHARGE DIAGNOSES: 1. Acute on chronic kidney disease, improved. 2. Nausea and vomiting, resolved. 3. Hypertension, under control. 4. Iron deficiency anemia, aware. 5. Hypothyroidism, aware. CONSULTATION: Dr. Santiago Faye from nephrology. PROCEDURES: 1. Abdomen and pelvis CT showed mild enlargement of the right adrenal gland. 2. Renal ultrasound did show slightly increased renal cortical echotexture which is a nonspecific indicator of medical renal disease. HOSPITAL COURSE: This is a 66-year-old female with history of diabetes type 2, hypertension, hyperlipidemia, iron deficiency anemia, who presented to the emergency department complaining of a near syncopal episode. Family member reports that she did not lose consciousness. Then when she was evaluated in the ER she reported that she was having nausea and vomiting for a month and she was not able to eat anything for about a week. Labs showed worsening renal failure and that was the reason for admission. Patient was placed on IV fluids and renal function started to look better from 4.62 on the day of admission to 2.1 on the day of discharge. The patient was recovering nicely. Also able to eat much better. Also she does not complain of any abdominal pain or loss of consciousness. So, she is being discharged in stable condition. DISCHARGE PHYSICAL EXAMINATION: Vital Signs: Temperature 98.0 degrees, heart rate 67, respiratory rate 20, blood pressure 155/70, O2 saturation 100% on room air. General: This is a 66-year-old female lying in bed, in no acute distress. HEENT: Head is normocephalic, atraumatic. Anicteric sclerae and pale conjunctivae. Mucous membranes moist. Neck: Supple. No JVD noted. No carotid bruits. No lymphadenopathy. No thyromegaly. Cardiovascular: S1, S2 heard. No murmurs, gallops, or rubs. Regular rate and rhythm. Respiratory: Clear bilaterally to auscultation. No work of breathing or using accessory muscles. Abdomen: Soft. Nontender to palpation. Bowel sounds present. No organomegaly. Extremities: No clubbing, cyanosis, or edema. Peripheral pulses present in both legs. Neurological: Patient is alert and oriented x3. Able to move 4 extremities. Cranial nerves 2 through 12 grossly normal. DISCHARGE DISPOSITION: Home to self-care. FOLLOW UP: Follow up with her doctor, Hellen Landeros MD, in 1-2 weeks with a BMP repeated. 1. Late. DISCHARGE MEDICATIONS: 1. Levothyroxine 25 mcg 1 tablet p.o. daily. 2. Fergon 1 tablet p.o. daily. 3. Clonidine 0.1 mg 1 tablet p.o. b.i.d. 4. Vitamin D3 1000 units 1 tablet p.o. daily. 5. Metformin 500 mg p.o. b.i.d. 6. Carvedilol 3.125 mg p.o. b.i.d. 7. Omeprazole 20 mg 1 tablet p.o. daily. 8. Amlodipine 5 mg twice daily. 9. Aspirin 81 mg 1 tablet p.o. daily. 10. Rosuvastatin 40 mg 1 tablet p.o. daily. 11. Losartan/hydrochlorothiazide 50/12.5 one tablet p.o. daily. 12. Citalopram 10 mg 1 tablet p.o. daily. cc: Miguel Browning MD
--- NOTE | 2016-07-23 13:48 | PROGRESS NOTE ---
DATE: 07/21/2016 SUBJECTIVE: Ms. Perez has no complaints, tolerating a soft diet. No nausea, no fever or chills. OBJECTIVE: Vital Signs: Temperature 98 degrees, heart rate 72, respirations 14, blood pressure 112/62, O2 saturation 100% room air. HEENT: Mild conjunctival pallor. Neck: Supple. Trachea midline. Heart: Normal. Lungs: Normal. Abdomen: Soft, today the patient does not have any abdominal tenderness, bowel sounds present and normal. Neurological: Intact. LABORATORY DATA: Creatinine has come down to 3.1. IMPRESSION AND PLAN: 1. Acute on chronic kidney disease secondary to dehydration, it is coming down with intravenous fluids. Dr. Faye is following the patient as well. 2. Nausea and vomiting resolved, possibly food poisoning. 3. Hypertension. The patient is restarted on Coreg. 4. Chronic iron deficiency anemia. 5. Hypothyroidism. 6. I think patient is doing fine. There is a questionable rectal thickening possibly proctitis. I talked to Ms. Perez and told her that Saturday will review her records and see when the dates we examined her colon and stomach and depending on that will schedule any procedures as outpatient if needed. cc: Mai Mckinney MD
--- NOTE | 2016-07-23 13:50 | PROGRESS NOTE ---
DATE: 07/22/2016 SUBJECTIVE: Feeling fine, ate all her meals, had a bowel movement. No blood in the stool. Tolerated the diet, wanting to go home. OBJECTIVE: Vital signs: Noted and stable. HEENT: No scleral icterus present, no pallor Neck: Supple. Trachea midline. Heart and lungs: Normal. Abdomen: Benign. Extremities: Unremarkable. LABORATORY DATA: Creatinine continues to come down. IMPRESSION/PLAN: 1. Acute on chronic kidney disease with improvement of renal function with hydration. 2. Nausea and vomiting resolved. 3. Hypertension. 4. Iron-deficient anemia. 5. Hypothyroidism. 6. Questionable rectal wall thickening on CT. I have talked to Ms. Perez and will review her endoscopy and call from our office to do a follow up. I okayed patient's discharge and follow with Dr. Faye and me and her primary care doctor. -2 cc: Mai Mckinney MD
--- NOTE | 2016-07-23 14:31 | CONSULTATION ---
DATE OF CONSULTATION: 07/20/2016 HISTORY OF PRESENT ILLNESS: I was asked to see her because she had some abdominal pain and a near syncopal episode. I have known her before. I did a colonoscopy and EGD for anemia in the past. She does not and I do not remember how many years, probably 4 or 5. The patient had a near syncopal episode and new onset of renal and prerenal azotemia. The patient is getting normal saline bolus. PAST MEDICAL HISTORY: Diabetes type 2, hypertension, hyperlipidemia, iron deficiency anemia, prior CVA, meningioma, TIAs, GERD, hypothyroidism. PAST SURGICAL HISTORY: 1. Hysterectomy in 1989. 2. Carpal tunnel release. FAMILY HISTORY: Mother had CVA. Father had brain cancer. SOCIAL HISTORY: Lives with her who is in bed. She smoked a pack per day but recently she has cut it down. ALLERGIES: None. HOME MEDICATION: Patient will bring it; we do not have them with her. REVIEW OF SYSTEMS: Fourteen point review is otherwise negative. PHYSICAL EXAMINATION: Vital Signs: Temp 98 degrees, pulse 84, respirations 16, blood pressure 147/73, O2 saturation 100%. General: Very pleasant lady, surrounded by family, in no acute distress. HEENT: No scleral icterus. Conjunctival pallor present. Neck: Supple. Trachea midline. Heart: Normal. Lungs: Normal. Abdomen: Soft, nondistended. Some minimal tenderness in the midepigastric area. No masses. Extremities: No cyanosis or clubbing. Neurological: No focal deficit, although she has a history of CVAs. LABORATORY DATA: Hemoglobin 10.6, hematocrit 31.3. Coags are normal. BUN 5.6, creatinine 4.6. IMPRESSION: 1. Acute on chronic renal disease, possibly secondary to dehydration and volume depletion. 2. Nausea and vomiting with epigastric abdominal pain. I am not sure if she had some food poisoning. She has no known history of peptic ulcers. We will follow this carefully. 3. Hypertension. 4. Iron deficiency anemia, chronic. 5. Hypothyroidism. PLAN: The patient said she is feeling better. She is tolerating liquids. We will try to advanced her diet. We will evaluate her further depending on the clinical course. cc: Mai Mckinney MD
== END 2016-07-22 14:07 | disposition home or self-care (01) ==
LOC: ED 18:46 → SUATTDRO 23:56 → 3N 23:56
PROVIDERS: ATTEND Internal Medicine

== ENCOUNTER 2016-10-12 14:23 | Inpatient (IN) ==
[2016-10-12 15:01] LABS: MANUAL DIFF NEEDED? NO
[2016-10-12 15:03] LABS: BASO% 0.3 % (0.0-0.8); EOS# 0.05 X1000 (0.0-0.7); EOS% 0.8 % (0.0-10.0); HEMATOCRIT 29.5 % (37.0-47.0); HEMOGLOBIN 9.5 g/dL (12.0-16.0); LYMPH# 1.06 X1000 (1.2-3.4); LYMPH% 17.9 % (20.5-51.1); MCH 29.6 PG (27-31); MCHC 32.2 g/dL (33-37); MCV 91.9 FL (81-99); MONO# 0.36 X1000 (0.11-0.59); MONO% 6.1 % (1.7-9.3); MPV 11.1 FL (7.4-10.4); NEUT% 74.9 % (42.2-75.2); PLT 149 X1000 (130-400); RBC 3.21 XMIL (4.2-5.4)
[2016-10-12 15:35] LABS: AGAP 21; ALBUMIN 3.9 g/dL (3.5-5.0); ALKALINE PHOSPHATASE 62 U/L (32-104); AMYLASE 117 U/L (20-200); BUN 54 mg/dL (8-22); CALCIUM 9.3 mg/dL (8.8-10.2); CHLORIDE 97 mmol/L (98-107); COSMO 289; GOT 10 U/L (10-30); GPT < 5 U/L (10-36); LIPASE 51 U/L (13-60); POTASSIUM 4.1 mmol/L (3.5-5.1); SODIUM 137 mmol/L (136-145); TCO2 19 mmol/L (25-35); TOTAL BILIRUBIN 0.24 mg/dL (0.20-1.00); TOTAL PROTEIN 7.2 g/dL (6.3-8.3)
[2016-10-12] MEDS ORDERED: NS 1,000 ML IV ONE ×2 (17:46→18:48)
--- NOTE | 2016-10-12 18:52 | PROVIDER DOCUMENTATION ---
This chart was entered by Ron Chisholm Scribe, acting as scribe for Dagoberto Burton MD. HPI-Abdominal Pain/GI Problem - General Chief Complaint: Nausea/Vomiting Stated Complaint: VOMITING Time Seen by Provider: 10/12/16 17:39 Source: patient, family Allergies/Adverse Reactions: Patient Allergies Allergy/AdvReac Type Severity Reaction Status Date / Time No Known Allergies Allergy Verified 07/19/16 19:04 Home Medications: Home Medication List Medication Instructions Recorded Confirmed Last Taken Type Carvedilol 3.125 mg PO BID 02/02/13 07/21/16 04/14/16 20:00 History Cholecalciferol (Vit D3) [Vitamin 1,000 unit PO DAILY 02/02/13 07/21/16 08:00 History D3] Clonidine [Catapres] 0.1 mg PO BID 02/02/13 07/21/16 04/14/16 08:00 History Ferrous Gluconate [Fergon] 1 each PO DAILY 02/02/13 07/21/16 04/14/16 08:00 History Levothyroxine [Synthroid] 25 microgm PO DAILY 02/02/13 07/21/16 04/14/16 08:00 History Metformin [Glucophage] 500 mg PO BID CC 02/02/13 07/21/16 04/14/16 20:00 History Omeprazole [Prilosec] 20 mg PO DAILY@0700 02/02/13 07/21/16 04/14/16 08:00 History Amlodipine [Norvasc] 5 mg PO BID #60 tablet 04/18/16 07/21/16 Unknown Rx Aspirin 81 mg PO DAILY #0 chewtab 04/18/16 07/21/16 Unknown Rx ROSUVAstatin [Crestor] 40 mg PO DAILY #60 tablet 04/18/16 07/21/16 Unknown Rx Escitalopram [Lexapro] 10 mg PO DAILY 07/21/16 07/21/16 Unknown History Losartan/Hydrochlorothiazide 1 each PO DAILY 07/21/16 07/21/16 Unknown History [Losartan-Hctz 50-12.5 mg Tab] - History of Present Illness-ABD Nature of Presenting Problems: Pt is a 66 yoaaf who presents to ER with CC of N/V that has been progressively worsening for the past week. Pt reports hx of renal disease and DM 2 and reports that she saw Dr. Crowe in July/August (pt unsure which month) and states that she had good renal functions as Dr. Crowe kept pt on Metformin. Pt also reports that she has an upcoming appointment with Dr. Gil. Pt denies F/chills but reports N/V and states that she feels dehydrated. Abdominal Pain Onset Location: reports: generalized abdomen Pain Radiation: reports: no radiation Quality of Pain: reports: aching Severity in ED: reports: mild Onset/Duration: reports: 1 week ago Timing: reports: still present, getting worse Associated Symptoms: reports: muscle aches, nausea, vomiting, weakness. denies : back/neck pain, chest pain, diarrhea, fever/chills, heartburn, loss of appetite, malaise, sinus congestion/drainage, seizure, shortness of breath, swelling/mass in abdomen, trouble walking Last BM: this morning Dark Stools Present?: reports: none noticed Rectal Bleeding: reports: none Rectal Pain: reports: none Emesis Description: reports: other (food particles/gastric juices) Review of Systems - Adult - REVIEW OF SYSTEMS - ADULT Constitutional: denies: chills, fever, fatique, night sweats, weight gain, weight loss Eyes: reports: no symptoms reported Ears, Nose, Mouth & Throat: reports: no symptoms reported Cardiovascular: reports: no symptoms reported Respiratory: reports: no symptoms reported Gastrointestinal: reports: abdominal pain, nausea, vomiting. denies: hematemesis, constipation, diarrhea, difficulty swallowing, frequent heartburn, poor appetite, rectal bleeding Genitourinary: reports: no symptoms reported Musculoskeletal: reports: muscle aches, muscle weakness. denies: bone pain, back pain, frequent leg cramps, joint pain, joint swelling, neck pain Integumentary: reports: no symptoms reported Neurological: reports: no symptoms reported Psychiatric: reports: no symptoms reported Endocrine: reports: no symptoms reported Hematologic/Lymphatic: reports: no symptoms reported Allergic/Immunologic: reports: no symptoms reported All Other Systems: Reviewed and Negative Past History - Adult - PAST MEDICAL HISTORY-ADULT Review of Records: reports: Nursing Assessment Review, Medications Reviewed Cardiovascular: reports: HTN, hyperlipidemia Genitourinary: reports: kidney disease Neurological: reports: CVA, stroke deficits (slight right sided hemiparesis), speech difficulty, TIA Endocrine/Immune: reports: Diabetes Diabetes Type: Type 2 - IMMUNIZATION STATUS Childhood Immunizations: See Nurse Assessment Flu Vaccine: See Nurse Assessment Physical Exam-General - PHYSICAL EXAM-ADULT Initial Vital Signs Reviewed: Yes - CONSTITUTIONAL General Appearance: appears well, alert, mild distress, lethargic - EYES Eyes: PERRL/EOMI, pink conjunctivae - NECK Neck: non-tender, full range of motion, supple, normal inspection, other (skin tenting). negative: C-spine tenderness, limited range of motion, lymphadenopathy - RESPIRATORY Respiratory: chest non-tender, lungs clear, normal breath sounds, no pleuratic chest pain, no respiratory distress, no accessory muscle use. negative: respiratory distress, decreased breath sounds, accessory muscle use, wheezing - CARDIOVASCULAR Cardiovascular: normal peripheral pulses, regular rate, rhythm, other ( Hypotensive). negative: bradycardia, tachycardia, irregularly irregular - GASTROINTESTINAL (ABDOMEN) Abdominal Exam: normal bowel sounds, non tender, soft, no organomegaly, no pulsatile mass. negative: guarding, rebound, tenderness - MUSCULOSKELETAL Extremity: normal range of motion, non-tender, normal gait, normal inspection, no pedal edema, no calf tenderness, normal capillary refill, pelvis stable. negative: pedal edema, swelling, tenderness - SKIN Integumentary: normal color, warm/dry, other (neck skin tenting). negative: normal turgor - NEUROLOGIC Neurologic: temporary data entry clerk II-XII nml as tested, grossly normal, no motor/sensory deficits . negative: motor weakness, sensory deficit - PSYCHIATRIC Psych/Mental Status: normal thought content, normal thought process, oriented x 3, depressed affect (mild). negative: normal mood/affect Progress - PLAN OF CARE/RESULTS Progress/Plan/Lab Results: Vital Signs - 8 hr 10/12/16 14:40 Temperature 97.9 F Pulse Rate 65 Respiratory Rate 18 Blood Pressure 92/50 O2 Sat by Pulse Oximetry 96 Laboratory Results - last 24 hr 10/12/16 10/12/16 14:52 14:52 WBC 5.92 RBC 3.21 L Hgb 9.5 L Hct 29.5 L MCV 91.9 MCH 29.6 MCHC 32.2 L RDW Std Deviation 13.2 Plt Count 149 MPV 11.1 H Immature Gran % (Auto) 0.0 Neut % (Auto) 74.9 Lymph % (Auto) 17.9 L [place] % (Auto) 6.1 Eos % (Auto) 0.8 Baso % (Auto) 0.3 Immature Gran # (Auto) 0.00 Neut # (Auto) 4.43 Lymph # (Auto) 1.06 L [place] # (Auto) 0.36 Eos # (Auto) 0.05 Baso # (Auto) 0.02 Sodium 137 Potassium 4.1 Chloride 97 L Carbon Dioxide 19 L Anion Gap 21 BUN 54 H Creatinine 5.1 H Estimated GFR/1.73 m2 10 BUN/Creatinine Ratio 11 Glucose 103 Calculated Osmolality 289 Calcium 9.3 Total Bilirubin 0.24 AST 10 ALT < 5 L Alkaline Phosphatase 62 Total Protein 7.2 Albumin 3.9 Globulin 3.3 Albumin/Globulin Ratio 1.2 Amylase 117 Lipase 51 Orders Category Date Time Status AMYLASE [CHEM] Stat Lab 10/12/16 14:52 Completed CBC WITH ELECTRONIC DIFF [HEME] Stat Lab 10/12/16 14:52 Completed COMPREHENSIVE METABOLIC PANEL [CHEM] Stat Lab 10/12/16 14:52 Completed LIPASE [CHEM] Stat Lab 10/12/16 14:52 Completed UA NIMS W/REFLEX CULT [URINALYSIS] Stat Lab 10/12/16 17:46 Uncollected 0.9% Sodium Chloride Inj [Ns] 1,000 ml Med 10/12/16 17:46 Active IV 150 mls/hr Result Diagrams: 10/12/16 14:52 10/12/16 14:52 - CONSULTS/PCP/HOSPITALIST Notification #1 *Consult/PCP/Hospitalist*: Hospitalist's Nurse Practitioner Time Discussed: 18:45 Reason/Comments: admit Departure - Departure Date of Disposition Decision: 10/12/16 Time of Disposition Decision: 18:51 DIAGNOSIS: Dehydration Acute renal failure Qualifiers: Acute renal failure type: unspecified Qualified Code(s): N17.9 - Acute kidney failure, unspecified Disposition: ADMITTED INPATIENT 09 Certified Medical Emergency: Emergent Condition: Fair Referrals and Follow-Ups: Hellen Landeros MD [Primary Care Provider] - - Critical Care Note This patient required my direct & personal management of CC.: Yes Attestation - Physician/ MALISSA Attestation Patient care was provided by Advanced Practice Provider:: No The physician spent face to face time with patient:: Yes Advanced Practice Provider documentation review:: Supervising physician onsite and consulted in the evaluation and care of this patient. The physician did have a face to face encounter with the patient. This chart was documented by the indicated scribe, (Ron Chisholm Scribe) and accurately reflects the services I performed and decisions made by me, Dagoberto Burton MD, as attested by the provider's signature.
--- NOTE | 2016-10-12 20:23 | HISTORY AND PHYSICAL ---
PRIMARY CARE PHYSICIAN: Jolene Landeros MD. REASON FOR ADMISSION: Worsening nausea and vomiting for the past one week. HISTORY OF PRESENT ILLNESS: Ms. Hayley Perez is a 66-year-old, woman with a past medical history of type 2 diabetes, hypertension, hyperlipidemia, iron-deficiency anemia, prior TIAs and chronic kidney disease. History of a meningioma, reflux and hypothyroidism. She reports having persistent nausea and vomiting for the last 1 week that has been getting progressively worse. She denies any diarrhea. She has been having very brief left upper quadrant pain over the last couple of days. Pain is spontaneous. No aggravating or relieving factors. No fever. No chills. She states that she has had no change in her medication. She has not had any rash or joint pain. No ingestion of any unusual foods or canned foods. Nobody else at home with similar symptoms. She does not recall being started on any new medication. The patient does admit to having postural lightheadedness. She denies any constipation. She denies any bleeding episodes. REVIEW OF SYSTEMS: A 12 system review was done and positive findings are noted in the HPI. The patient states that she probably lost about 50 pounds over the last 6 months. Patient denies any cardiac or respiratory complaints whatsoever. ALLERGIES: None except to tape. HOME MEDICATIONS: These have not been reconciled, however, in June of last year she was on Coreg, vitamin D3, clonidine, ferrous gluconate, levothyroxine, metformin, omeprazole, amlodipine, aspirin, Crestor and Lexapro. FAMILY HISTORY: No kidney disease or diabetes in first-degree relatives. Dad of brain cancer. Mom had CVA. PAST SURGICAL HISTORY: Hysterectomy, carpal tunnel release and right rotator cuff surgery. SOCIAL HISTORY: She smokes half-pack of cigarettes a day but wants to quit. No alcohol or drug use. Lives with her whom she is the primary caregiver for and he is bedbound requiring a lot of care. Patient admits that this has caused a lot of stress for her and as such she has been somewhat anxious, depressed, and not eating enough. LABORATORY WORK: Notable for the following findings: White count 6000, hemoglobin and hematocrit 9 and 29, platelets 149,000 with normal differential. BUN is 64, creatinine 5.1, loss of peak creatinine on record is 2.4 I believe, glucose 103, amylase and lipase are normal, albumin 3.9. Urinalysis is pending. A flat and upright x-ray ordered by dc is pending. PHYSICAL EXAMINATION: VITAL SIGNS: Blood pressure is 92/50, heart rate is 65, respirations 18, temperature is 97.3 degrees. O2 is 96 on room air. GENERAL: She is a middle-aged, woman who is not in acute distress. She is alert and oriented to person, place and time with normal mood and affect. HEENT: Head is normocephalic, atraumatic. Eyes: PERRL, EOMI. She has sunken in eyeballs. She is anicteric, not pale. ENT examination shows she has mildly moist oral mucosa but no other findings. No cyanosis. NECK: Supple. No JVD but positive hepatojugular reflux. No bruit. No thyromegaly. No lymphadenopathy. CHEST: Clear to auscultation. Good air entry in both lung salvador. CARDIOVASCULAR: First and second heart sounds heard. No gallops or rubs. Rhythm is regular. VASCULAR: The patient has decreased pulses distally in all extremities, they are very weak but regular. ABDOMEN: Full, soft, nontender. No hepatosplenomegaly. Bowel sounds are hypoactive. RECTAL EXAMINATION: Deferred. EXTREMITIES: No edema or cyanosis. The patient has mild clubbing of her fingers. NEUROLOGICAL EXAMINATION: No asterixis. No focal deficits. Cranial nerves 2-12 appear grossly intact. SKIN: Patient has decreased skin turgor. No rash. No breakdown or erythema. MUSCULOSKELETAL EXAMINATION: Grossly normal. ASSESSMENT: 1. Acute on chronic kidney disease secondary to dehydration. 2. Dehydration secondary to poor oral intake which could be secondary to uremia from acute kidney injury. 3. Chronic kidney disease stage 3. 4. Type 2 diabetes. 5. Hypertension. 6. Hypotension secondary to dehydration. 7. Hyperlipidemia. 8. Hypothyroidism. PLAN: At this time the patient clinically and biochemically is definitely dehydrated. We will cautiously hydrate patient. We will monitor her output closely and make modifications based on her output. Spot urine, creatinine and sodium will be ordered to confirm the possible diagnosis of a prerenal etiology. The biggest issue here is what set this off. The patient reports a 60 pound weight loss which is a little worrisome. It is possible that with the weight loss her blood pressure may have been better controlled. With her being relatively normotensive and taking 3 different blood pressure medications, this could have precipitated poor renal perfusion and subsequent acute renal failure which in turn caused the vicious cycle of uremia, nausea and vomiting. The one thing that needs to be worked up in this patient is to evaluate why she is losing weight which could be related to the stress she is undergoing while caring for her . However since she is a smoker it will be prudent to rule out a more ominous etiology. We will discontinue any nephrotoxic medications, one of which is Hyzaar. We will avoid aggressive control of her blood pressure to allow for effective renal perfusion. We will consult Dr. Faye. There is nothing to suggest an upper obstructive etiology in this woman so I have held off on an ultrasound but this can be ordered at the discretion of the primary attending on this case. The patient's medication list has not been updated is not reconciled. This needs to be reviewed. cc: MD Jolene Sy
[2016-10-12] MEDS ORDERED: ZOFRAN IV PRN (21:05)
[2016-10-12] MEDS ORDERED: TYLENOL PO PRN (21:05)
[2016-10-12 21:37] LABS: URINE SOURCE CLEAN CATCH
[2016-10-12 21:42] LABS: BILIRUBIN URINE NEGATIVE (NEGATIVE); BLOOD URINE TRACE (NEGATIVE); COLOR STRAW; GLUCOSE URINE NEGATIVE (NEGATIVE); LEUKOCYTES URINE TRACE (NEGATIVE); NITRITE URINE NEGATIVE (NEGATIVE); PH URINE 6.5; PROTEIN URINE 30 mg/dL (NEGATIVE); SP GRAVITY URINE 1.005; TURBIDITY URINE CLEAR (CLEAR); UROBILINOGEN URINE NORMAL (NORMAL)
[2016-10-12 21:43] LABS: URINE MICRO REVIEW NEEDED? YES
[2016-10-12 21:52] LABS: UR EPITHELIAL CELLS <10 /HPF (<10); URINE BACTERIA NEGATIVE /HPF; URINE CULTURE NEEDED? YES; URINE RBC <10 /HPF (<10); URINE WBC <10 /HPF (<10)
[2016-10-12 22:07] LABS: URINE CASTS NONE SEEN; URINE CRYSTALS NONE SEEN; URINE SMALL ROUND CELLS NONE SEEN
[2016-10-13] MEDS: NS 1,000 ML IV SCH ×4 (01:11→22:18)
[2016-10-13] MEDS: PEPCID PO SCH ×3 (01:11→22:18)
[2016-10-13] MEDS: COREG PO SCH ×3 (01:11→22:18)
[2016-10-13 02:31] LABS: UR CREAT RANDOM 27.5 mg/dL (11-20)
[2016-10-13 07:17] LABS: MANUAL DIFF NEEDED? NO
[2016-10-13 07:24] LABS: BASO% 0.5 % (0.0-0.8); EOS% 1.7 % (0.0-10.0); HEMATOCRIT 27.7 % (37.0-47.0); HEMOGLOBIN 9.1 g/dL (12.0-16.0); LYMPH# 1.67 X1000 (1.2-3.4); LYMPH% 27.9 % (20.5-51.1); MCH 29.9 PG (27-31); MCHC 32.9 g/dL (33-37); MCV 91.1 FL (81-99); MONO# 0.89 X1000 (0.11-0.59); MONO% 14.9 % (1.7-9.3); MPV 11.4 FL (7.4-10.4); PLT 174 X1000 (130-400); RBC 3.04 XMIL (4.2-5.4)
[2016-10-13 07:40] LABS: CALCIUM 8.5 mg/dL (8.8-10.2); POTASSIUM 3.8 mmol/L (3.5-5.1)
--- NOTE | 2016-10-13 08:38 | Diag Imaging Result Doc PS360 ---
EXAM: ABDOMEN FLAT/UPRIGHT INDICATION: persistent N and V TECHNIQUE: 2 views COMPARISON: None. FINDINGS: There are calcified granulomata projecting over the pelvis. There are nonspecific colonic bowel gas and stool patterns. There is no obstructive pattern. There is no evidence of large volume free abdominal gas. There is no evidence of organomegaly. IMPRESSION: Nonspecific abdomen. Electronically signed by Orlando Goetz 10/13/2016 8:35 AM
[2016-10-13] MEDS: ASPIRIN PO SCH (09:10)
--- NOTE | 2016-10-13 15:49 | Diag Imaging Result Doc PS360 ---
EXAM: US RENAL 2 (RETROPER) COMPLETE INDICATION: decreased renal function TECHNIQUE: COMPARISON: 07/20/2016 FINDINGS: The left kidney appears to be partially obscured. The kidneys are grossly normal in echotexture with no discrete mass or hydronephrosis. The right kidney measures up to 11.7 cm and the left kidney measures up to 8.0 cm in the greatest longitudinal axes. The right renal cortex measures 1.3 cm in the left renal cortex measures up to 1.2 cm in thickness. The urinary bladder is grossly unremarkable. IMPRESSION: Diminutive left kidney as compared to the right that is probably because it is partially imaged. Grossly unremarkable renal ultrasound, otherwise. Electronically signed by Orlando Goetz 10/13/2016 3:47 PM
--- NOTE | 2016-10-13 15:52 | CONSULTATION ---
DATE OF CONSULTATION: 10/13/2016 REASON FOR CONSULTATION: Acute kidney injury. HISTORY OF PRESENT ILLNESS: Ms. Perez is a 66-year-old woman that I have seen in the past as a patient. Her lowest creatinine in the last year is 1.2 back in March. She has had a couple of admissions with acute kidney injury with intravascular volume depletion. She states that she began having anorexia and nausea but no diarrhea. Her intake has dropped off significantly. These symptoms have been present for about a week and associated with vomiting. Because her symptoms were not improving and she was having weakness and postural hypotensive symptoms she presented to the Emergency Room. Her initial evaluation in the Emergency Room found her blood pressure 92/50 with a heart rate of 65 and her initial laboratory data disclosed a creatinine of 5.1. Most recent creatinine in our system is from August 23 at 2.6. For this reason she was admitted to the hospital. She has been receiving IV fluids since admission with normal saline at 125 mL/hr. Her home medications have been modified to withhold her metformin and also to withhold her losartan. PAST MEDICAL HISTORY: 1. Diabetes. 2. Hypertension. 3. Hyperlipidemia. 4. Hypothyroidism. HOME MEDICATIONS: Include Lexapro, Crestor, aspirin, amlodipine, omeprazole, metformin, levothyroxine, iron, clonidine, and Coreg. ALLERGIES: None. SOCIAL HISTORY: She lives at home alone. Her is on dialysis but he is currently living with her daughter. FAMILY HISTORY: Family history is otherwise noncontributory. REVIEW OF SYSTEMS: Obtained and noncontributory. PHYSICAL EXAMINATION: Vital Signs: Blood pressure is 111/69, heart rate 74, and respirations 16. Afebrile. General: Generally she is a healthy appearing woman in no acute distress. Skin: Warm and dry. HEENT: Conjunctivae are pink and moist. Oropharynx is moist. Dentition is normal. Neck: Supple. Trachea is midline. No jugular venous distention. Heart: Regular with S4. No murmur. Lungs: Equal breath sounds. No crackles or wheezes. No accessory muscle use or retractions. Abdomen: Soft and nontender. Bowel sounds are present. No organomegaly, masses, or bruits. Extremities: No edema, clubbing, or cyanosis. LABORATORY DATA: Sodium is 141, potassium 3.8, chloride 105, bicarbonate 21, BUN 51, and creatinine 4.8. Hemoglobin is 9.1. IMPRESSION: Acute kidney injury, likely secondary to intravascular volume depletion in the context of angiotensin receptor jackson therapy. Preliminarily, her creatinine is improving with withdrawal of her losartan and administration of IV fluids. We will continue to observe her response. She will need a renal ultrasound. No other evaluation is required at this time. The question that remains is whether or to what degree she has underlying chronic kidney disease. We will continue to withhold her angiotensin receptor jackson until her creatinine stabilizes. cc: Santiago Faye MD
--- NOTE | 2016-10-13 17:27 | PROGRESS NOTE ---
DATE: 10/13/2016 SUBJECTIVE: Patient reports having no fever, and she is not vomiting anymore, and she reports no abdominal pain. She is feeling overall somewhat better than how she was when she was admitted. OBJECTIVE: Vital Signs: Temperature 97.9 degrees, heart rate 70, respiratory rate 20, blood pressure 129/73, O2 saturation 98% on room air. General Examination: This is a 66-year-old female lying in bed, in no acute distress. HEENT: Head is normocephalic, atraumatic. Neck: Supple. No JVD noted. No carotid bruits. No lymphadenopathy. Cardiovascular: S1, S2 heard. No murmurs, gallops, or rubs. Regular rate and rhythm. Respiratory: Clear bilaterally to auscultation. No work of breathing or using accessory muscles. Abdomen: Soft, nontender to palpation. Bowel sounds present. No organomegaly. Extremities: No clubbing, cyanosis, or edema. Peripheral pulses present in both legs. Neurologic Exam: Patient alert and oriented x3. Moves 4 extremities. Cranial nerves 2-12 grossly normal. LABORATORY DATA: White cell count 598, hemoglobin 9.1, hematocrit 27.7, platelets 174,000. BMP shows creatinine 4.89 and BUN 51. ASSESSMENT/PLAN: 1. Acute on chronic kidney disease secondary to dehydration. This condition is getting better with IV fluids. Patient is not vomiting anymore. Requests to have some food, so we are going to provide more consistent food with regular diet and we will see how she does. 2. Dehydration secondary to poor oral intake. Patient is on IV fluids. We will continue with the same management. 3. Diabetes mellitus type 2. We will continue with home medications. 4. Hypertension. The blood pressure has been acceptable so we will continue with the same management. 5. Hyperlipidemia. Stable. We will continue with home medications. 6. Hypothyroidism. Stable. cc: Miguel Browning MD
[2016-10-14 06:47] LABS: MANUAL DIFF NEEDED? NO
[2016-10-14 06:58] LABS: BASO% 0.6 % (0.0-0.8); EOS# 0.14 X1000 (0.0-0.7); EOS% 2.8 % (0.0-10.0); HEMATOCRIT 28.8 % (37.0-47.0); HEMOGLOBIN 9.5 g/dL (12.0-16.0); LYMPH% 37.7 % (20.5-51.1); MCH 29.8 PG (27-31); MCV 90.3 FL (81-99); MONO# 0.72 X1000 (0.11-0.59); MONO% 14.3 % (1.7-9.3); MPV 10.2 FL (7.4-10.4); NEUT% 44.6 % (42.2-75.2); PLT 251 X1000 (130-400); RBC 3.19 XMIL (4.2-5.4)
[2016-10-14 07:12] LABS: CALCIUM 8.3 mg/dL (8.8-10.2); POTASSIUM 3.4 mmol/L (3.5-5.1)
[2016-10-14] MEDS: NS 1,000 ML IV SCH ×2 (07:56→16:10)
[2016-10-14] MEDS: ASPIRIN PO SCH (09:29)
[2016-10-14] MEDS: COREG PO SCH ×2 (09:29→22:37)
[2016-10-14] MEDS: PEPCID PO SCH ×2 (09:29→22:37)
[2016-10-14] MEDS ORDERED: KLOR-CON PO ONE (12:42)
--- NOTE | 2016-10-14 16:13 | PROGRESS NOTE ---
DATE: 10/14/2016 SUBJECTIVE: The patient reports not vomiting anymore. Not having a good appetite. She is not having any diarrhea or having abdominal pain. No fever or chills. OBJECTIVE: Vitals signs: Temperature 98.2 degrees, heart rate 73, respiratory rate 16, blood pressure 152/93, O2 saturation 100% on room air. General: This is a 66-year-old, female lying in bed, in no acute distress. HEENT: Head is normocephalic, atraumatic. Anicteric sclerae and pale conjunctivae. Mucous membranes moist. Neck: Supple. No JVD noted. No carotid bruits. No lymphadenopathy. No thyromegaly. Cardiovascular: S1, S2 heard. No murmurs, gallops, or rubs. Regular rate and rhythm. Respiratory: Clear bilaterally to auscultation. No work of breathing or use of accessory muscles. Abdomen: Soft, nontender to palpation. Bowel sounds present. No organomegaly. Extremities: No clubbing, cyanosis, or edema. Peripheral pulses present in both legs. Neurological: Patient alert and oriented x3. Able to move 4 extremities. Cranial nerves 2 through 12 grossly normal. LABORATORY DATA: Creatinine 3.8 today. ASSESSMENT AND PLAN: 1. [id number] kidney disease, secondary to dehydration. The patient, clinically, is getting better, with no nausea or vomiting. IV fluids are being provided to her. The patient requests some food and she did not vomit with it. At this point, we will continue with the same management. 2. Dehydration, secondary to poor oral intake. The patient is on IV fluid. We will continue with same management. 3. Diabetes mellitus type 2. We will continue with home medications. 4. Hypertension. Blood pressure is well-controlled. We will continue with the same management. 5. Hyperlipidemia, stable. We will continue with home medications. 6. Hypothyroidism, stable. We will continue with home medications. 7. If the patient is tolerating IV fluids, and also there is some improvement in creatinine, we may let this patient go tomorrow. cc: Miguel Browning MD
[2016-10-15] MEDS: NS 1,000 ML IV SCH ×3 (05:08→17:00)
[2016-10-15] MEDS: NICODERM PATCH TD SCH ×2 (05:08→09:17)
[2016-10-15 06:55] LABS: BASO% 0.7 % (0.0-0.8); EOS# 0.17 X1000 (0.0-0.7); HEMATOCRIT 29.1 % (37.0-47.0); HEMOGLOBIN 9.5 g/dL (12.0-16.0); LYMPH# 2.23 X1000 (1.2-3.4); LYMPH% 39.3 % (20.5-51.1); MANUAL DIFF NEEDED? NO; MCH 29.5 PG (27-31); MCHC 32.6 g/dL (33-37); MCV 90.4 FL (81-99); MONO# 0.76 X1000 (0.11-0.59); MONO% 13.4 % (1.7-9.3); NEUT% 43.6 % (42.2-75.2); PLT 187 X1000 (130-400); RBC 3.22 XMIL (4.2-5.4)
[2016-10-15 07:18] LABS: CALCIUM 8.5 mg/dL (8.8-10.2); POTASSIUM 3.6 mmol/L (3.5-5.1)
[2016-10-15] MEDS: ASPIRIN PO SCH (09:18)
[2016-10-15] MEDS: COREG PO SCH ×2 (09:18→22:11)
[2016-10-15] MEDS: PEPCID PO SCH ×2 (09:18→22:11)
--- NOTE | 2016-10-15 09:21 | PROGRESS NOTE ---
DATE: 10/15/2016 SUBJECTIVE: Patient reports feeling still nauseated. She is not vomiting anymore but she is not having a good appetite. She is just eating 1 bite of each meal here in the hospital. She did not request for any nausea medication yet. OBJECTIVE: Vital Signs: Temperature 98.5 degrees, heart rate 73, respiratory rate 16, blood pressure 160/89, O2 saturation 100% on room air. General Examination: This is a 66-year-old, female lying in bed, in no acute distress. HEENT: Head is normocephalic and atraumatic. Anicteric sclerae and pale conjunctivae. Mucous membranes moist. Neck: Supple. No JVD noted. No carotid bruits. No lymphadenopathy. No thyromegaly. Cardiovascular Examination: S1 and S2 heard. No murmurs, gallops, or rubs. Regular rate and rhythm. Respiratory Examination: Clear bilaterally to auscultation. No work of breathing or using accessory muscles. Abdomen: Soft, nontender to palpation. Bowel sounds present. No organomegaly. Extremities: No clubbing, cyanosis, or edema. Peripheral pulses present in both legs. Neurological Examination: Patient is alert and oriented x3. Able to move 4 extremities. Cranial nerves 2 -12 are grossly normal. Laboratory Data: The creatinine is 3 today. ASSESSMENT AND PLAN: 1. Acute on chronic kidney disease secondary to dehydration. She is doing better with creatinine now in the range of 3. Unfortunately, this patient is still feeling sick. My plan for her is to keep her 1 more day. Continue with intravenous fluids. I advised that the patient if she needs medication for nausea she need to request to nurse. We will see if she can be discharged tomorrow. 2. Dehydration. We will continue with intravenous fluids. 3. Diabetes mellitus type 2. We will continue home medications. 4. Hypertension. Blood pressure is well controlled. We will continue with the same medications at home. 5. Hyperlipidemia, stable. We will continue home medications. 6. Hypothyroidism. TSH within normal limits. We will continue home medications. Overall, this patient was admitted to the hospital for acute kidney injury, acute on chronic kidney disease. Otherwise, she is doing much better but unfortunately, she is still feeling sick. We will continue with intravenous fluids. We will check on her tomorrow. If she is not feeling like that, we can easily let her go. cc: Miguel Browning MD MTDD
--- NOTE | 2016-10-15 12:21 | PROGRESS NOTE ---
DATE: 10/15/2016 TIME SEEN: 08:20. SUBJECTIVE: Ms. Perez is resting quietly in bed. She denies any chest pain. No increased work of breathing. She continues with normal saline at 125 mL an hour. States that she is feeling a little bit better and would like to go home today. OBJECTIVE: Vital Signs: Temperature 98.5 degrees, blood pressure 160/89, heart rate 73, respirations 16. She remains on room air. Last recorded saturation 100%. She has had 360 in. She has had 400 out per void. General: This is a 66-year-old white female. She is resting quietly in bed. Head of the bed is elevated. She has just finished her breakfast. She is in no acute distress. Skin: Warm and dry. HEENT: Normocephalic, atraumatic. Conjunctivae pale. She has HORACE. Mucous membranes moist. Neck: Supple. Trachea midline. No JVD. Cardiovascular: Regular rate and rhythm. She has a positive S4. Lungs: Clear to auscultation anteriorly. Equal excursion on room air. Abdomen: Soft, nontender. Positive bowel sounds. Genitourinary: Not inspected. Patient has been voiding adequate amount. Extremities: Have no edema. No clubbing or cyanosis. Neurological: Alert and oriented x3. LABORATORY DATA: Sodium 143, potassium 3.6, chloride 110, CO2 of 18, BUN 23, creatinine 3, glucose 94, anion gap 15, calcium 8.5, white count 5.68, hemoglobin 9.5, hematocrit 29.1, platelets 187,000. ASSESSMENT AND PLAN: 1. Acute kidney injury. Patient's creatinine has continued to improve with IV fluid infusion. She continues with normal saline at 125 mL an hour. We have instructed patient that if she is discharged she is to continue to drink at least 2 quarts of fluid a day. She is to continue to hold her losartan at this time. We will plan for followup in our office. The patient is discharged within 2-3 weeks of her discharge appointment. 2. Electrolytes. These remain stable. 3. Acid-base balance. Patient remains slightly with metabolic acidosis with a closing anion gap. 4. Anemia. This remains low but stable. I would to thank you for allowing us to follow with this patient. Dictated by MARIA FERNANDA Dawkins for Santiago Faye MD Patient seen, data reviewed, discussed with Keiko Connolly on 10/15/16. I agree with the above assessment and plan of care. cc: MARIA FERNANDA Dawkins MD [facility]
[2016-10-16] MEDS: NS 1,000 ML IV SCH ×2 (05:44)
[2016-10-16 06:44] LABS: MANUAL DIFF NEEDED? NO
[2016-10-16 06:54] LABS: BASO% 0.5 % (0.0-0.8); EOS# 0.18 X1000 (0.0-0.7); EOS% 3.1 % (0.0-10.0); HEMATOCRIT 28.4 % (37.0-47.0); HEMOGLOBIN 9.3 g/dL (12.0-16.0); LYMPH# 2.09 X1000 (1.2-3.4); LYMPH% 35.8 % (20.5-51.1); MCH 29.4 PG (27-31); MCHC 32.7 g/dL (33-37); MCV 89.9 FL (81-99); MONO# 0.75 X1000 (0.11-0.59); MONO% 12.9 % (1.7-9.3); MPV 11.2 FL (7.4-10.4); NEUT% 47.7 % (42.2-75.2); PLT 202 X1000 (130-400); RBC 3.16 XMIL (4.2-5.4)
[2016-10-16 07:13] LABS: CALCIUM 8.2 mg/dL (8.8-10.2); POTASSIUM 3.6 mmol/L (3.5-5.1)
[2016-10-16 08:09] VITALS: BP 161/88
[2016-10-16] MEDS: PEPCID PO SCH (09:55)
[2016-10-16] MEDS: NICODERM PATCH TD SCH (09:55)
[2016-10-16] MEDS: COREG PO SCH (09:55)
[2016-10-16] MEDS: ASPIRIN PO SCH (09:55)
--- NOTE | 2016-10-16 13:37 | PROGRESS NOTE ---
DATE: 10/16/2016 SUBJECTIVE: Ms. Perez is resting quietly in bed. She states that she is ready to go home. She denies chest pain or increased work of breathing. OBJECTIVE: Her most recent vital signs, temperature 98.3 degrees, blood pressure 161/88, heart rate 73, respirations 18. She is on room air. Last recorded saturation 99%. She has had 1250 in. She has had 1800 out per void during the night. LABORATORY DATA: Her sodium is 144, potassium 3.6, chloride 109, CO2 18, BUN 19 , creatinine 2.5, glucose 105. Anion gap is 17, calcium 8.2. White count 5.83, hemoglobin 9.3, hematocrit 28.4 with a platelet count of 202,000. PHYSICAL EXAMINATION: General: This is a 66-year-old female. She is resting in bed. She is in no acute distress. Skin: Warm and dry. HEENT: Normocephalic , atraumatic. Conjunctivae pale. She has HORACE. Mucous membranes moist. Neck: Supple. Trachea midline. No JVD. Cardiovascular: Regular rate and rhythm. She has a positive S4. No murmur appreciated. Lungs: Clear to auscultation anteriorly. Equal excursion. Abdomen: Soft, nontender. Positive bowel sounds. Genitourinary: Not inspected. Patient has had her Allen catheter removed. She is getting up and voiding adequate amounts. Extremities: Have no edema. No clubbing or cyanosis. Neurological: Alert and oriented x3. ASSESSMENT AND PLAN: 1. Acute kidney injury on chronic kidney disease stage 3. Patient's creatinine has improved today. There are no indications at this time that we cannot follow her on outpatient basis in 2 weeks if discharged. She is to continue to hold her losartan at this time. She has indicated that she would like to travel. We have instructed her to drink at least 2 quarts of fluid a day, to stop every 2 hours and get out and walk and follow up with us on discharge. 2. Electrolytes and acid-base balance. These remain stable. 3. Anemia. This is low but stable. I would to thank you for allowing us to follow with this patient. Dictated by MARIA FERNANDA Dawkins for Santiago Faye MD Patient seen, data reviewed, discussed with Keiko Connolly on 10/16/16. I agree with the above assessment and plan of care. cc: MARIA FERNANDA Dawkins MD MTDD
--- NOTE | 2016-10-16 17:50 | DISCHARGE SUMMARY ---
ADMISSION DATE: 10/12/2016 DISCHARGE DATE: 10/16/2016 CONSULTATIONS: Dr. Faye with Nephrology. PERTINENT PROCEDURES: 1. Abdominal x-ray nonspecific. 2. Renal ultrasound showed diminutive left kidney as compared to the right that is probably because it is partially imaged, grossly unremarkable renal ultrasound otherwise. DISCHARGE DIAGNOSES: 1. Acute kidney injury secondary to intravascular volume depletion in context of ARB therapy. Creatinine improved with administration of IV fluids. She has been instructed to drink at least 2 quarts of fluid a day, continue to hold her losartan, and follow up with Dr. Faye in their office in 2-3 weeks. Electrolytes, acid-base and anemia all remain stable. 2. Diabetes mellitus, type 2. Continue medications. 3. Hypertension. Continue home losartan. 4. Hyperlipidemia stable. Continue home medications. 5. Hypothyroidism. Continue Synthroid. HOSPITAL COURSE: Ms. Perez is a 66-year-old female who carries a past medical history of type 2 diabetes, hypertension, hyperlipidemia, iron-deficiency anemia, prior TIA, chronic kidney disease, history of meningioma, reflux, hypothyroidism. Reports persistent nausea and vomiting for 1 week that has been getting progressively worse. Denies diarrhea. Had a brief episode of left upper quadrant pain over the last couple days. Pain is spontaneous. No aggravating or relieving factors. No fever no chills. No changes in her medication. No ingestion of unusual foods or can foods. Laboratory data revealed BUN 64 and a creatinine of 5.1, normal amylase and lipase. Flat and upright did not show any acute findings. Renal ultrasound was normal. Dr. Faye was consulted in reference to her kidney injury. The patient was hydrated. Her losartan was held. Dr. Faye felt that her acute kidney injury was likely secondary to intravascular volume depletion in the context of her ARB therapy and that her creatinine has been improving with the withdrawal of her losartan and giving IV fluids. She was also given antiemetics for her nausea and vomiting. The patient's nausea and vomiting has resolved. Her creatinine went from 5.1 down to 2.5. She has been instructed to continue to at least drink 2 quarts of fluid per day and to continue to hold her losartan and follow up with Dr. Faye in 2-3 weeks. VITAL SIGNS AT TIME OF HER DISCHARGE: Temperature is 98.3 degrees, heart rate 73, respirations 18, blood pressure 161/80, O2 saturation is 100% on room air. DISCHARGE DIET: Regular. DISCHARGE MEDICATIONS: 1. Norvasc 5 mg p.o. b.i.d. 2. Aspirin 81 mg p.o. daily. 3. Coreg 6.25 mg p.o. b.i.d. 4. Zyrtec 10 mg p.o. daily. 5. Vitamin D3 1000 units p.o. daily. 6. Catapres 0.1 mg p.o. b.i.d. 7. Vitamin B12 02788 mcg p.o. 8. Lexapro 10 mg p.o. daily. 9. Ferrous sulfate 5 g p.o. daily. 10. Flonase 1 spray inhaled daily p.r.n. 11. [place] 10/325, 1 each p.o. 2-4 times per day p.r.n. 12. Synthroid 88 mcg p.o. daily. 13. Prilosec 20 mg p.o. daily. 14. Crestor 40 mg p.o. daily. FOLLOW UP: Ms. Perez is being discharged back home with self care. She is to follow up with Dr. Faye in their office in 2-3 weeks with labs. Continue to drink at least 2 quarts of fluid daily. Follow up with her primary care physician, Dr. Jolene Landeros, in 1 week. She will return to the ED for any worsening of symptoms. Dictated by MARIA FERNANDA Floyd for Miguel Browning MD cc: MD Hellen Guallpa
== END 2016-10-16 12:03 | disposition home or self-care (01) ==
LOC: ED 14:23 → 3N 14:24 → SUATTDRO 14:24
PROVIDERS: ATTEND Internal Medicine

== ENCOUNTER 2018-05-15 16:13 | Observation (INO) ==
[2018-05-15] MEDS ORDERED: CATAPRES PO ONE (17:07)
--- NOTE | 2018-05-15 17:46 | EKG Report ---
Test Performed on : 05/15/2018 4:51:04 PM Test Reason : htn Blood Pressure : / mmHG Vent. Rate : 069 BPM Atrial Rate : 069 BPM P-R Int : 142 ms QRS Dur : 084 ms QT Int : 394 ms P-R-T Axes : 055 022 041 degrees QTc Int : 422 ms Normal sinus rhythm. Possible Left atrial enlargement Left ventricular hypertrophy Nonspecific T wave abnormality Abnormal ECG When compared with ECG of 19-JUL-2016 18:57, premature atrial complexes. are no longer present Unconfirmed Result
[2018-05-15] MEDS ORDERED: APRESOLINE IV ONE (17:58)
[2018-05-15] MEDS ORDERED: LABETALOL IV ONE (18:41)
[2018-05-15] MEDS ORDERED: LABETALOL ONE (18:51)
[2018-05-15 19:58] LABS: BASO# 0.02 X1000 (0.0-0.2); BASO% 0.3 % (0.0-0.8); EOS# 0.16 X1000 (0.0-0.7); EOS% 2.3 % (0.0-10.0); HEMATOCRIT 37.6 % (37.0-47.0); HEMOGLOBIN 12.2 g/dL (12.0-16.0); IMM GRAN# 0.03 X1000 (0.0-0.04); IMM GRAN% 0.4 % (0.0-0.5); LYMPH# 2.19 X1000 (1.2-3.4); MCHC 32.4 g/dL (33-37); MCV 92.4 FL (81-99); MONO# 0.69 X1000 (0.11-0.59); MONO% 10.1 % (1.7-9.3); MPV 11.3 FL (7.4-10.4); NEUT# 3.75 X1000 (1.4-6.5); NEUT% 54.9 % (42.2-75.2); PLT 54 X1000 (130-400); RBC 4.07 XMIL (4.2-5.4); RDW 14.2 % (11.5-14.5); WBC 6.84 X1000 (4.8-10.8)
[2018-05-15 20:04] LABS: ALBUMIN 3.9 g/dL (3.5-5.0); CALCIUM 8.9 mg/dL (8.8-10.2); CREATININE 1.5 mg/dL (0.5-0.9); POTASSIUM 4.4 mmol/L (3.5-5.1); TOTAL BILIRUBIN 0.2 mg/dL (0.20-1.00); TOTAL PROTEIN 7.2 g/dL (6.3-8.3)
[2018-05-15] MEDS ORDERED: APRESOLINE IV PRN ×2 (20:08→21:00)
[2018-05-15 20:25] LABS: BILIRUBIN URINE NEGATIVE (NEGATIVE); BLOOD URINE NEGATIVE (NEGATIVE); CLARITY CLEAR (CLEAR); COLOR YELLOW; GLUCOSE URINE NEGATIVE (NEGATIVE); KETONE URINE NEGATIVE (NEGATIVE); LEUKOCYTES URINE NEGATIVE (NEGATIVE); NITRITE URINE NEGATIVE (NEGATIVE); PROTEIN URINE NEGATIVE (NEGATIVE); SP GRAVITY URINE 1.005; URINE BACTERIA NEGATIVE /HFP; URINE CAST NONE SEEN /LPF; URINE CRYSTAL NONE SEEN /HPF; URINE EPITHELIAL CELLS <10 /HPF (<10); URINE RBC <10 /HPF (<10); URINE SOURCE CLEAN CATCH; URINE WBC <10 /HPF (<10); URINE YEAST NONE SEEN /HPF; UROBILINOGEN URINE NORMAL
[2018-05-16 11:41] VITALS: BP 142/80
[2018-05-16] MEDS ORDERED: COREG PO SCH (11:45)
[2018-05-16] MEDS ORDERED: COZAAR PO SCH (11:45)
[2018-05-16] MEDS ORDERED: SYNTHROID PO SCH (11:45)
--- NOTE | 2018-05-16 12:09 | HISTORY AND PHYSICAL ---
ADDENDUM: Patient seen and examined by myself. Full note dictated and discussed with nurse practitioner. Patient notes she has been out of her clonidine for a few days, and her blood pressures were markedly elevated. Therefore, she came to the ER. She was treated in the ER, and blood pressures have continued to improve. Please see full dictation. cc: Brendon Mitchell MD
--- NOTE | 2018-05-16 12:14 | HISTORY AND PHYSICAL ---
CHIEF COMPLAINT: "My blood pressure is high." The patient had ran out of clonidine, was unaware, and has been off of it for quite some time. She did not realize this so she has been without it for some time. She denied any syncope, dizziness, chest pain, palpitations, any fever or chills. PAST MEDICAL HISTORY: Diabetes mellitus type 2, hypertension, hypothyroid, and chronic kidney disease stage 3. 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 PAST SURGICAL HISTORY: Hysterectomy, carpal tunnel release, and right rotator cuff. SOCIAL HISTORY: She smokes about a pack a day. She denies alcohol or illicit drug use. HOME MEDICATIONS: A list will be obtained by the nursing staff, and once verified will review and restart as appropriate. REVIEW OF SYSTEMS: Discussed with the patient with pertinent positives stated in the HPI. She denied any syncope, dizziness, chest pain, palpitations, any shortness of breath, cough, fever, chills, PND, orthopnea, any nausea, vomiting, diarrhea, constipation, black or bloody vomitus or stools, hematuria, dysuria, frequency, or urgency. PHYSICAL EXAMINATION: GENERAL: This is a 67-year-old female who is sitting up in the bed in no distress. VITAL SIGNS: Blood pressure is 151/56 with heart rate of 85, respirations are 18, temperature 98.8 degrees oral with room air sats 98 to 100%. EYES: Pupils are equal, round and reactive to light. EOMs are intact. Sclerae are anicteric. HEENT: Head is normocephalic, atraumatic. Mucous membranes are moist. NECK: Supple with trachea midline. CARDIOVASCULAR: Regular rate and rhythm. S1 and S2 appreciated. Calves are nontender with peripheral pulses palpable x4. EXTREMITIES: She has no lower extremity edema. PULMONARY: Breath sounds are clear with no increased work of breathing noted. Chest rises and falls symmetrically with respiration. Chest wall is nontender to palpation. GASTROINTESTINAL: Abdomen is soft, nontender, and nondistended. Bowel sounds in all 4 quadrants. GENITOURINARY: She has no CVA or suprapubic tenderness. NEUROLOGIC: She is alert and oriented x3. SKIN: Warm and dry. LABORATORY: WBC is 6.8 with hemoglobin 12.2, hematocrit 37.6, and platelets of 54,000. Sodium is 140, potassium 4.4, BUN 24, creatinine 1.5 with a glucose of 119. Urinalysis is essentially negative. ASSESSMENT AND PLAN: 1. Hypertension most likely rebound as the patient has recently been off her clonidine. We will restart her home medications, and trend vital signs. 2. Diabetes mellitus type 2. She will be paced. We will monitor blood sugars. Identify her home medications and continue. 3. Hypothyroid. We will continue home medications. 4. Chronic kidney disease stage 3. Her creatinine is 1.5. In review, she has been around 1.7 to 2 so we will renal dose medications and trend as needed, and trend her labs. 5. History of cerebrovascular accident with right-sided weakness. Aware. Further treatments pending hospital course. Dictated by MARIA FERNANDA Delgado for Brendon Mitchell MD This chart was documented by, MARIA FERNANDA Delgado and accurately reflects the services performed, treatment plan and medical decisions as attested by the providers signature Brendon Mitchell MD. cc: MARIA FERNANDA Delgado MD
--- NOTE | 2018-05-17 02:20 | DISCHARGE SUMMARY ---
ADMISSION DATE: 05/15/2018 DISCHARGE DATE: 05/16/2018 DISCHARGE DIAGNOSIS: 1. Malignant hypertension, resolved. 2. History of cerebrovascular accident, stable. 3. Slight right-sided hemiparesis from history of cerebrovascular accident, stable, unchanged. 4. Diabetes. 5. Hyperlipidemia. CONSULTATIONS: None. PROCEDURES: None. BRIEF HOSPITAL COURSE: Patient is a 67-year-old female who presented to the hospital with acute neurologic symptoms of an elevated blood pressure. Thankfully, after her blood pressure improved all of her symptoms resolved. She states she is currently back to her baseline. Her blood pressures currently this morning on her home medications are 115 systolic. DISPOSITION: Patient will be discharged home. She will follow up outpatient with primary of her choice. She will continue her medications. Discussed with her the importance of not abruptly stopping clonidine. cc: Brendon Mitchell MD
--- NOTE | 2018-05-18 01:34 | PROVIDER DOCUMENTATION ---
This chart was entered by Brionna Goetz Scribe, acting as scribe for Ira Spaulding MD. HPI-Cardiac General - General Chief Complaint: B/P Problems Stated Complaint: IRREGULAR BP Time Seen by Provider: 05/15/18 16:14 Source: patient Allergies/Adverse Reactions: Patient Allergies Allergy/AdvReac Type Severity Reaction Status Date / Time No Known Allergies Allergy Verified 07/19/16 19:04 Home Medications: Home Medication List Medication Instructions Recorded Confirmed Last Taken Type Cholecalciferol (Vit D3) [Vitamin 1,000 unit PO DAILY 02/02/13 05/15/18 05/14/18 History D3] Omeprazole [Prilosec] 20 mg PO DAILY@0700 02/02/13 05/15/18 05/14/18 History Aspirin 81 mg PO DAILY #0 chewtab 04/18/16 05/15/18 05/14/18 Rx ROSUVAstatin [Crestor] 40 mg PO DAILY #60 tablet 04/18/16 05/15/18 05/14/18 Rx Escitalopram [Lexapro] 10 mg PO DAILY 07/21/16 05/15/18 05/14/18 History Cetirizine HCl [Zyrtec] 10 mg PO DAILY 10/13/16 05/15/18 05/14/18 History Cyanocobalamin (Vitamin B-12) 2,500 mcg PO DAILY 10/13/16 05/15/18 05/14/18 History [Vitamin B12] Levothyroxine Sodium 88 mcg PO DAILY 10/13/16 05/15/18 05/14/18 History Carvedilol [Coreg] 6.25 mg PO BID #60 tablet 10/16/16 05/15/18 05/14/18 Rx Iron Fum,Ps/Folic/Bcomp,C No.9 1 tab PO DAILY 05/15/18 05/15/18 05/15/18 History [Folivane-Plus Capsule] Losartan [Cozaar] 25 mg PO DAILY 05/15/18 05/15/18 05/15/18 History Mirtazapine [Remeron] 15 mg PO DAILY 05/15/18 05/15/18 Unknown History Clonidine [Catapres] 0.1 mg PO BID #60 tab 05/16/18 Unknown Rx - History of Present Illness-Cardiac Nature of Presenting Problem: 67n yof c/o bp elevated this am. pt had home health nurse check bp and it was in the 200s. pt denies cp, sob, headache and blurred vision. pt ran out of klonodine and didn't realize she was out. Quality of Pain: reports: none Severity in ED: mild Onset/Duration: this morning Review of Systems - Adult - REVIEW OF SYSTEMS - ADULT Constitutional: reports: no symptoms reported Eyes: reports: no symptoms reported Ears, Nose, Mouth & Throat: reports: no symptoms reported Cardiovascular: reports: see HPI, other (elevated bp this am). denies: heart murmur, irregular heart rate, orthopnea, palpitations Respiratory: reports: no symptoms reported Gastrointestinal: reports: no symptoms reported Genitourinary: reports: no symptoms reported Musculoskeletal: reports: no symptoms reported Integumentary: reports: no symptoms reported Neurological: reports: no symptoms reported Psychiatric: reports: no symptoms reported Endocrine: reports: no symptoms reported Hematologic/Lymphatic: reports: no symptoms reported Allergic/Immunologic: reports: no symptoms reported All Other Systems: Reviewed and Negative Past History - Adult - PAST MEDICAL HISTORY-ADULT Review of Records: reports: Old Records Reviewed, Nursing Assessment Review, Medications Reviewed, Social history reviewed & non-contributory. Major Childhood Illnesses: reports: denies history Cardiovascular: reports: HTN, hyperlipidemia Respiratory: reports: denies history Gastrointestinal: reports: denies history Obstetrical/Gynecological: reports: denies history Genitourinary: reports: kidney disease Musculoskeletal: reports: denies history Neurological: reports: CVA, stroke deficits (slight right sided hemiparesis), speech difficulty, TIA Endocrine/Immune: reports: Diabetes Other Conditions: reports: denies history - PRIOR SURGERIES/PROCEDURES Surgical/Procedure History: reports: hysterectomy, orthopedic (extremity) (bilat shoulders) - IMMUNIZATION STATUS Childhood Immunizations: See Nurse Assessment Flu Vaccine: See Nurse Assessment - FAMILY HISTORY Family History: reviewed, not pertinent - SOCIAL HISTORY Smoking: cigarettes, less than 1 pack/day Provider spent 3-5 mins advising pt. on dangers of tobacco.: Discussed manners to quit use, and f/u contacts for add'l counseling. Substance Use: none/never Physical Exam-General - PHYSICAL EXAM-ADULT Initial Vital Signs Reviewed: Yes - CONSTITUTIONAL General Appearance: appears well, alert, no apparent distress - EYES Eyes: PERRL/EOMI - HEAD, EARS, NOSE, MOUTH & THROAT HENMT: normocephalic/atraumatic, moist mucous membranes, normal ENT inspection - NECK Neck: non-tender, full range of motion, supple, normal inspection - RESPIRATORY Respiratory: chest non-tender, lungs clear, normal breath sounds - CARDIOVASCULAR Cardiovascular: normal peripheral pulses, regular rate, rhythm, no edema, no gallop, no JVD, no murmur, other (188/61 bp in er). negative: diastolic murmur, systolic murmur, extra beats, friction rub - GASTROINTESTINAL (ABDOMEN) Abdominal Exam: normal bowel sounds, non tender, soft - LYMPHATIC Lymphatic: no adenopathy - MUSCULOSKELETAL Back Exam: normal inspection, no CVA tenderness, no vertebral tenderness Extremity: normal range of motion, non-tender, normal inspection Peripheral Pulses: radial (R): 2+, radial (L): 2+ - SKIN Integumentary: normal color, normal turgor, warm/dry - NEUROLOGIC Neurologic: metal drawer II-XII nml as tested, grossly normal, no motor/sensory deficits - PSYCHIATRIC Psych/Mental Status: normal mood/affect, normal thought content, normal thought process, oriented x 3 Progress - PLAN OF CARE/RESULTS Result Diagrams: 05/15/18 19:05 05/15/18 19:05 - EKG 1 Time of EKG reading by physician:: 16:52 EKG Read and Signed by:: Marcie Cline EKG Interpretation (*Must complete 3 of following elements*): Abnormal Rate: 69 (Poss left atrial enlargement ) Rhythm: NSR QRS: LVH TN Interval: normal ST Wave: non-specific ST changes (nonspecific t wave abnormality) Departure - Departure Date of Disposition Decision: 05/18/18 Time of Disposition Decision: 01:33 DIAGNOSIS: Hypertension, uncontrolled Disposition: HOME 01 Certified Medical Emergency: Emergent Condition: Good - Critical Care Note This patient required my direct & personal management of CC.: No Attestation - Physician/ MALISSA Attestation Patient care was provided by Advanced Practice Provider:: No The physician spent face to face time with patient:: Yes Advanced Practice Provider documentation review:: Supervising physician onsite and consulted in the evaluation and care of this patient. The physician did have a face to face encounter with the patient. This chart was documented by the indicated scribe, (Brionna Goetz Scribe) and accurately reflects the services I performed and decisions made by me, Ira Spaulding MD, as attested by the provider's signature.
== END 2018-05-16 13:36 | disposition home health service (06) ==
LOC: P.ED 16:13 → P.MEDSURG 16:14 → INTOOBSV 16:14
PROVIDERS: ATTEND Family Medicine
CPT/HCPCS: 80053; 81001; 82948; 85025; 93005; 94761; 96374; 96375; 96376; 99285; A9270; J0360; XXXXX